=== PATIENT | male | born 1950 | race Caucasian/White ===

== ENCOUNTER 2017-12-13 12:57 | Emergency (ER) | payer MEDICARE, OTHER | END 2017-12-13 17:00 | disposition short-term general hospital (02) | LOC: E/R 12:57 | DX: G62.9 Polyneuropathy, unspecified (principal); I12.9 Hypertensive chronic kidney disease with stage 1 through stage 4 chronic kidney disease, or unspecified chronic kidney disease; N18.9 Chronic kidney disease, unspecified; I25.10 Atherosclerotic heart disease of native coronary artery without angina pectoris; R40.2142 Coma scale, eyes open, spontaneous, at arrival to emergency department; R40.2252 Coma scale, best verbal response, oriented, at arrival to emergency department; R40.2362 Coma scale, best motor response, obeys commands, at arrival to emergency department; Z79.82 Long term (current) use of aspirin; Z87.891 Personal history of nicotine dependence | CPT/HCPCS: 82962; 93005; 99285-25 ==

== ENCOUNTER 2018-01-06 16:34 | Emergency (ER) | payer MEDICARE, OTHER ==
[2018-01-06] MEDS: LORAZEPAM 2 MG INJ IV (16:49)
[2018-01-06 16:59] LABS: ADD MAN DIFF? NO
[2018-01-06 17:01] LABS: WHITE BLOOD COUNT 8.1 10^3/ul (4.8-10.8)
[2018-01-06 17:01] LABS: BASOPHIL # 0.1 10^3/ul (0.0-0.1); BASOPHILS % 0.6 % (0.0-2.0); EOSINOPHILS # 0.1 10^3/ul (0.0-0.5); EOSINOPHILS % 1.1 % (0.0-7.0); HEMATOCRIT 38.2 % (42.0-52.0); HEMOGLOBIN 13.7 g/dl (14.0-18.0); LYMPHOCYTES # 1.4 10^3/ul (0.8-2.9); LYMPHOCYTES % 16.8 % (15.0-51.0); MEAN CORPUSCULAR HEMOGLOBIN 33.3 pg (29.0-33.0); MEAN CORPUSCULAR HGB CONC 35.9 g/dl (32.0-37.0); MEAN CORPUSCULAR VOLUME 92.7 fl (82.0-101.0); MEAN PLATELET VOLUME 10.1 fl (7.4-10.4); MONOCYTE # 0.6 10^3/ul (0.3-0.9); MONOCYTES % 7.1 % (0.0-11.0); NEUTROPHILS % 74.2 % (39.0-77.0); PLATELET COUNT 120 10^3/UL (140-415); RED BLOOD COUNT 4.12 10^6/ul (4.70-6.10); RED CELL DISTRIBUTION WIDTH 12.4 % (11.5-14.5)
[2018-01-06 17:17] LABS: ANION GAP 20 (8-16); BLOOD UREA NITROGEN 32 mg/dl (7-20); CALCIUM 9.1 mg/dl (8.4-10.2); CARBON DIOXIDE 17 mmol/L (21-31); CHLORIDE 110 mmol/L (97-110); CREATININE 2.55 mg/dl (0.61-1.24); GLUCOSE 122 mg/dl (70-220); POTASSIUM 4.9 mmol/L (3.5-5.1); SODIUM 142 mmol/L (135-144)
[2018-01-06 17:31] LABS: TROPONIN-I < 0.010 ng/ml (0.000-0.120)
[2018-01-06] MEDS: LORAZEPAM 1 MG TAB PO (18:38)
[2018-01-06] MEDS: SOD CHLORIDE 0.9% 1,000 ML IV (18:38)
== END 2018-01-06 20:24 | disposition home or self-care (01) ==
LOC: E/R 16:34
DX: I12.9 Hypertensive chronic kidney disease with stage 1 through stage 4 chronic kidney disease, or unspecified chronic kidney disease (principal); I25.10 Atherosclerotic heart disease of native coronary artery without angina pectoris; N18.9 Chronic kidney disease, unspecified; Z87.891 Personal history of nicotine dependence
CPT/HCPCS: 36415; 71045; 80048; 84484; 85025; 93005; 96374; 99285-25

== ENCOUNTER 2018-01-13 12:01 | Emergency (ER) | payer MEDICARE, OTHER ==
[2018-01-13] MEDS: LORAZEPAM 1 MG TAB PO (12:35)
[2018-01-13 16:25] LABS: ADD MAN DIFF? NO
[2018-01-13 16:28] LABS: WHITE BLOOD COUNT 8.7 10^3/ul (4.8-10.8)
[2018-01-13 16:28] LABS: BASOPHIL # 0.1 10^3/ul (0.0-0.1); BASOPHILS % 0.6 % (0.0-2.0); EOSINOPHILS # 0.1 10^3/ul (0.0-0.5); HEMATOCRIT 40.2 % (42.0-52.0); HEMOGLOBIN 14.5 g/dl (14.0-18.0); LYMPHOCYTES # 2.6 10^3/ul (0.8-2.9); LYMPHOCYTES % 29.7 % (15.0-51.0); MEAN CORPUSCULAR HEMOGLOBIN 32.5 pg (29.0-33.0); MEAN CORPUSCULAR HGB CONC 36.1 g/dl (32.0-37.0); MEAN CORPUSCULAR VOLUME 90.1 fl (82.0-101.0); MEAN PLATELET VOLUME 10.2 fl (7.4-10.4); MONOCYTE # 0.6 10^3/ul (0.3-0.9); MONOCYTES % 6.6 % (0.0-11.0); NEUTROPHIL # 5.4 10^3/ul (1.6-7.5); NEUTROPHILS % 61.9 % (39.0-77.0); PLATELET COUNT 118 10^3/UL (140-415); POSITIVE DIFF @See below; RED BLOOD COUNT 4.46 10^6/ul (4.70-6.10); RED CELL DISTRIBUTION WIDTH 12.5 % (11.5-14.5)
[2018-01-13 16:53] LABS: ALANINE AMINOTRANSFERASE 16 IU/L (13-69); ALBUMIN 4.6 g/dl (3.3-4.9); ALBUMIN/GLOBULIN RATIO 1.21; ALKALINE PHOSPHATASE 56 IU/L (42-121); ANION GAP 17 (8-16); ASPARTATE AMINO TRANSFERASE 30 IU/L (15-46); BILIRUBIN,INDIRECT 1.3 mg/dl (0-1.1); BILIRUBIN,TOTAL 1.3 mg/dl (0.2-1.3); BLOOD UREA NITROGEN 32 mg/dl (7-20); CALCIUM 9.6 mg/dl (8.4-10.2); CARBON DIOXIDE 17 mmol/L (21-31); CHLORIDE 112 mmol/L (97-110); CREATININE 2.45 mg/dl (0.61-1.24); GLUCOSE 110 mg/dl (70-220); POTASSIUM 4.6 mmol/L (3.5-5.1); SALICYLATE 2.4 mg/dl (5.0-30.0); SODIUM 141 mmol/L (135-144); TOTAL PROTEIN 8.4 g/dl (6.1-8.1)
[2018-01-13 16:54] LABS: ACETAMINOPHEN < 10.0 ug/ml (10.0-30.0); ETHANOL < 10.0 mg/dl
[2018-01-14] MEDS: IBUPROFEN 600 MG TAB PO (01:19)
[2018-01-14 02:03] LABS: AMPHETAMINE/METHAMPHETAMINE Negative (NEGATIVE); BARBITURATES Negative (NEGATIVE); BENZODIAZEPINES Positive (NEGATIVE); CANNABINOIDS Negative (NEGATIVE); COCAINE Negative (NEGATIVE); OPIATES Negative (NEGATIVE)
[2018-01-14 03:04] LABS: ADD UMIC YES; UR ASCORBIC ACID NEGATIVE (NEGATIVE); UR BACTERIA FEW /HPF (NONE SEEN); UR BILIRUBIN (Dip) NEGATIVE (NEGATIVE); UR BLOOD (Dip) 1+ mg/dL (NEGATIVE); UR CLARITY CLOUDY (CLEAR); UR COLOR RED (YELLOW); UR GLUCOSE (Dip) NEGATIVE (NEGATIVE); UR KETONES (Dip) NEGATIVE (NEGATIVE); UR LEUKOCYTE ESTERASE (Dip) 3+ Leu/ul (NEGATIVE); UR MUCUS FEW /HPF (NONE SEEN); UR NITRITE (Dip) NEGATIVE (NEGATIVE); UR RBC 1 /HPF (0-5); UR SPECIFIC GRAVITY (Dip) 1.012 (1.003-1.030); UR TOTAL PROTEIN (Dip) 2+ mg/dl (NEGATIVE); UR UROBILINOGEN (Dip) NEGATIVE (NEGATIVE); UR WBC 152 /HPF (0-5)
[2018-01-14] MEDS: CEFTRIAXONE 1 GM/50 ML (PMX) 50 ML IVPB (04:13)
[2018-01-14] MEDS: CEFTRIAXONE 1 GM INJ IM (04:45)
== END 2018-01-14 07:00 ==
LOC: E/R 01-14 07:00
DX: E86.0 Dehydration (principal); I12.9 Hypertensive chronic kidney disease with stage 1 through stage 4 chronic kidney disease, or unspecified chronic kidney disease; N18.9 Chronic kidney disease, unspecified; I25.10 Atherosclerotic heart disease of native coronary artery without angina pectoris; I25.2 Old myocardial infarction; F17.210 Nicotine dependence, cigarettes, uncomplicated
CPT/HCPCS: 80053; 80307; 81001; 85025; 96372; 99285-25

== ENCOUNTER 2018-04-13 19:03 | Emergency (ER) | payer MEDICARE, OTHER ==
[2018-04-13] MEDS: RACEPINEPHRINE 2.25%(NEB) 0.5 ML AMP HHN (19:24)
[2018-04-13] MEDS: ONDANSETRON 4 MG INJ IV (19:37)
[2018-04-13] MEDS: GLUCAGON 1 MG INJ IV (19:37)
[2018-04-13] MEDS: LORAZEPAM 1 MG TAB PO (19:49)
[2018-04-13] MEDS: LEVOFLOXACIN 750 MG TABLET PO (20:08)
[2018-04-13] MEDS: metroNIDAZOLE 500 MG TAB PO (20:08)
[2018-04-13] MEDS: DEXAMETHASONE 10 MG/ML 1 ML INJ IM (20:08)
== END 2018-04-13 20:21 | disposition left against medical advice (07) ==
LOC: E/R 19:03
DX: T17.900A Unspecified foreign body in respiratory tract, part unspecified causing asphyxiation, initial encounter (principal); I12.9 Hypertensive chronic kidney disease with stage 1 through stage 4 chronic kidney disease, or unspecified chronic kidney disease; N18.9 Chronic kidney disease, unspecified; I25.10 Atherosclerotic heart disease of native coronary artery without angina pectoris; I25.2 Old myocardial infarction; F17.210 Nicotine dependence, cigarettes, uncomplicated; R06.02 Shortness of breath; X58.XXXA Exposure to other specified factors, initial encounter; Y92.89 Other specified places as the place of occurrence of the external cause
CPT/HCPCS: 94664; 96372; 99285-25

== ENCOUNTER 2018-09-06 21:34 | Inpatient (IN) | payer MEDICARE, OTHER ==
[2018-09-06 22:07] LABS: ADD MAN DIFF? NO
[2018-09-06] MEDS: morphine 4 MG/ML VIAL IV (22:19)
[2018-09-06] MEDS: ONDANSETRON 4 MG INJ IV (22:19)
[2018-09-06] MEDS: SOD CHLORIDE 0.9% 500 ML IV (22:20)
[2018-09-06 23:16] LABS: ABNORMAL IP MESSAGE 1; BASOPHILS % 0.5 % (0.0-2.0); EOSINOPHILS # 0.1 10^3/ul (0.0-0.5); EOSINOPHILS % 3.2 % (0.0-7.0); HEMOGLOBIN 11.3 g/dl (14.0-18.0); LYMPHOCYTES # 1.1 10^3/ul (0.8-2.9); LYMPHOCYTES % 29.3 % (15.0-51.0); MEAN CORPUSCULAR HEMOGLOBIN 32.8 pg (29.0-33.0); MEAN CORPUSCULAR HGB CONC 34.2 g/dl (32.0-37.0); MEAN CORPUSCULAR VOLUME 95.7 fl (82.0-101.0); MEAN PLATELET VOLUME 9.3 fl (7.4-10.4); MONOCYTE # 0.4 10^3/ul (0.3-0.9); MONOCYTES % 9.2 % (0.0-11.0); NEUTROPHIL # 2.2 10^3/ul (1.6-7.5); NEUTROPHILS % 57.3 % (39.0-77.0); PLATELET COUNT 61 10^3/UL (140-415); POSITIVE DIFF @See below; RED BLOOD COUNT 3.45 10^6/ul (4.70-6.10); RED CELL DISTRIBUTION WIDTH 12.8 % (11.5-14.5)
[2018-09-06 23:16] LABS: WHITE BLOOD COUNT 3.8 10^3/ul (4.8-10.8)
[2018-09-06 23:36] LABS: ANION GAP 6 (5-13); BLOOD UREA NITROGEN 30 mg/dl (7-20); CARBON DIOXIDE 24 mmol/L (21-31); CHLORIDE 110 mmol/L (97-110); CREATININE 2.71 mg/dl (0.61-1.24); Estimated GFR 24 mL/min (>60); GLUCOSE 92 mg/dl (70-220); POTASSIUM 4.5 mmol/L (3.5-5.1); SODIUM 140 mmol/L (135-144)
[2018-09-06 23:37] LABS: MAGNESIUM 1.5 mg/dl (1.7-2.5)
[2018-09-06 23:37] LABS: INR 1.07; PT RATIO 1.1
[2018-09-06 23:38] LABS: PARTIAL THROMBOPLASTIN TIME 38.3 Sec (23.0-35.0)
[2018-09-06 23:48] LABS: TROPONIN-I < 0.012 ng/ml (0.000-0.120)
[2018-09-07] MEDS ORDERED: ONDANSETRON 4 MG TAB PO
[2018-09-07] MEDS ORDERED: ACETAMINOPHEN 325 MG TAB PO
[2018-09-07] MEDS ORDERED: NACL 0.9% 3 ML SYG IV
[2018-09-07] MEDS ORDERED: ONDANSETRON 4 MG INJ IV
[2018-09-07] MEDS: HYDROmorphONE 0.5 MG/0.5 ML SYG IV
[2018-09-07] MEDS: MAGNESIUM SULFATE 2 GM/50 ML 50 ML IVPB
[2018-09-07 01:33] LABS: BASOPHILS % (M) 1 % (0-2); EOSINOPHILS % (M) 3 % (0-7); LYMPHOCYTES #M 0.9 10^3/ul (0.8-2.9); LYMPHOCYTES % (M) 25 % (15-51); MONOCYTE #M 0.2 10^3/ul (0.3-0.9); MONOCYTES % (M) 7 % (0-11); PLATELET ESTIMATE DECREASED; SEGMENTED NEUTROPHILS (M) % 64 % (39-77)
[2018-09-07 01:43] LABS: CREATINE KINASE 203 IU/L (23-200)
[2018-09-07 01:45] LABS: ETHANOL < 10.0 mg/dl (0-0)
[2018-09-07 01:56] LABS: CK INDEX 1.8; TROPONIN-I < 0.012 ng/ml (0.000-0.120)
[2018-09-07 02:02] LABS: CK-MB 3.69 ng/ml (0.0-2.4)
[2018-09-07] MEDS: ACETAMINOPHEN 325 MG TAB PO ×2 (02:53→17:28)
[2018-09-07] MEDS: HEPARIN 5,000 UNIT/1 ML VIAL SC (03:06)
[2018-09-07] MEDS: traMADol 50 MG TAB PO ×2 (04:12→13:03)
[2018-09-07] MEDS: hydrALAzine 20 MG INJ IV (05:07)
[2018-09-07] MEDS: morphine 2 MG INJ IV (06:05)
[2018-09-07] MEDS ORDERED: NON-FORMULARY/PATIENT OWN MED (Omeprazole* 20 MG) PO (09:00)
[2018-09-07 09:28] LABS: ADD UMIC YES; UR ASCORBIC ACID NEGATIVE (NEGATIVE); UR BILIRUBIN (Dip) NEGATIVE (NEGATIVE); UR BLOOD (Dip) NEGATIVE (NEGATIVE); UR CLARITY CLEAR (CLEAR); UR COLOR STRAW (YELLOW); UR GLUCOSE (Dip) NEGATIVE (NEGATIVE); UR KETONES (Dip) NEGATIVE (NEGATIVE); UR LEUKOCYTE ESTERASE (Dip) NEGATIVE Leu/ul (NEGATIVE); UR NITRITE (Dip) NEGATIVE (NEGATIVE); UR RBC 1 /HPF (0-5); UR SPECIFIC GRAVITY (Dip) 1.006 (1.003-1.030); UR TOTAL PROTEIN (Dip) 2+ mg/dl (NEGATIVE); UR UROBILINOGEN (Dip) NEGATIVE (NEGATIVE); UR WBC 0 /HPF (0-5)
[2018-09-07] MEDS: CHOLECALCIFEROL 1,000 UNIT TAB PO (09:52)
[2018-09-07] MEDS: AMLODIPINE 2.5 MG TAB PO (09:53)
[2018-09-07] MEDS: GABAPENTIN 300 MG CAP PO (09:54)
[2018-09-07] MEDS: clonAZEPAM 0.5 MG TAB PO ×4 (09:54→20:59)
[2018-09-07] MEDS: DOXYCYCLINE 100 MG TAB PO ×2 (09:54→20:59)
[2018-09-07] MEDS: DULOXETINE 30 MG CAP DR PO (09:54)
[2018-09-07 10:03] LABS: SODIUM,URINE RANDOM 75 mmol/L (30-90)
[2018-09-07] MEDS: IPRATROPIUM 0.03% 30 ML NASAL SPRAY NASAL ×2 (10:30→21:00)
[2018-09-07 10:32] LABS: AMPHETAMINE/METHAMPHETAMINE Negative (NEGATIVE); BARBITURATES Negative (NEGATIVE); BENZODIAZEPINES Negative (NEGATIVE); CANNABINOIDS Negative (NEGATIVE); COCAINE Negative (NEGATIVE); OPIATES Positive (NEGATIVE)
[2018-09-07] MEDS: morphine (ER) 30 MG TAB PO ×2 (11:06→20:58)
[2018-09-07] MEDS: ROPINIROLE 0.25 MG TAB PO ×3 (11:13→20:59)
[2018-09-07] MEDS: PANTOPRAZOLE (EC) 40 MG TAB PO (11:13)
[2018-09-07] MEDS: RISPERIDONE 2 MG TAB PO ×2 (11:13→20:58)
[2018-09-07 12:00] LABS: ADD MAN DIFF? NO
[2018-09-07 12:11] LABS: ABNORMAL IP MESSAGE 1; BASOPHILS % 0.8 % (0.0-2.0); EOSINOPHILS # 0.1 10^3/ul (0.0-0.5); HEMATOCRIT 40.7 % (42.0-52.0); HEMOGLOBIN 13.7 g/dl (14.0-18.0); LYMPHOCYTES # 0.7 10^3/ul (0.8-2.9); LYMPHOCYTES % 18.6 % (15.0-51.0); MEAN CORPUSCULAR HEMOGLOBIN 32.2 pg (29.0-33.0); MEAN CORPUSCULAR HGB CONC 33.7 g/dl (32.0-37.0); MEAN CORPUSCULAR VOLUME 95.8 fl (82.0-101.0); MEAN PLATELET VOLUME 9.9 fl (7.4-10.4); MONOCYTE # 0.3 10^3/ul (0.3-0.9); MONOCYTES % 7.3 % (0.0-11.0); NEUTROPHIL # 2.8 10^3/ul (1.6-7.5); PLATELET COUNT 72 10^3/UL (140-415); POSITIVE DIFF @See below; RED BLOOD COUNT 4.25 10^6/ul (4.70-6.10); RED CELL DISTRIBUTION WIDTH 12.8 % (11.5-14.5)
[2018-09-07 12:32] LABS: CREATINE KINASE 150 IU/L (23-200)
[2018-09-07 12:37] LABS: HEMOGLOBIN A1C 4.9 % (0-5.9)
[2018-09-07 12:41] LABS: ALANINE AMINOTRANSFERASE 21 IU/L (13-69); ALBUMIN/GLOBULIN RATIO 1.08; ALKALINE PHOSPHATASE 88 IU/L (42-121); ANION GAP 10 (5-13); ASPARTATE AMINO TRANSFERASE 36 IU/L (15-46); BILIRUBIN,INDIRECT 0.5 mg/dl (0-1.1); BILIRUBIN,TOTAL 0.5 mg/dl (0.2-1.3); CALCIUM 9.5 mg/dl (8.4-10.2); CARBON DIOXIDE 24 mmol/L (21-31); CHLORIDE 110 mmol/L (97-110); CHOL/HDL RATIO 2.9 RATIO; CHOLESTEROL 143 mg/dl (100-200); CREATININE 2.57 mg/dl (0.61-1.24); Estimated GFR 25 mL/min (>60); GLUCOSE 107 mg/dl (70-220); HDL CHOLESTEROL 49 mg/dl (30-78); LDL CHOLESTEROL,CALCULATED 72 mg/dl; MAGNESIUM 2.3 mg/dl (1.7-2.5); SODIUM 144 mmol/L (135-144); TOTAL PROTEIN 7.7 g/dl (6.1-8.1); TRIGLYCERIDES 112 mg/dl (0-149)
[2018-09-07 12:43] LABS: BLOOD UREA NITROGEN 28 mg/dl (7-20); CK INDEX 2.1; TROPONIN-I < 0.012 ng/ml (0.000-0.120)
[2018-09-07 12:50] LABS: CK-MB 3.19 ng/ml (0.0-2.4)
[2018-09-07] MEDS ORDERED: clonAZEPAM 0.5 MG TAB PO (13:00)
[2018-09-07] MEDS: GABAPENTIN 400 MG CAP PO ×2 (13:03→20:58)
[2018-09-07 14:05] LABS: CREATININE,URINE RANDOM 26.95 mg/dl (20-370)
[2018-09-07] MEDS: SENNA/DOCUSATE NA (8.6MG/50MG) TAB PO (20:58)
[2018-09-07] MEDS: TAMSULOSIN (SR) 0.4 MG CAP PO (20:59)
[2018-09-07] MEDS: ATORVASTATIN 10 MG TAB PO (20:59)
[2018-09-08 06:06] LABS: ADD MAN DIFF? NO
[2018-09-08] MEDS: PANTOPRAZOLE (EC) 40 MG TAB PO (06:21)
[2018-09-08 06:38] LABS: ABNORMAL IP MESSAGE 1; BASOPHILS % 0.4 % (0.0-2.0); EOSINOPHILS # 0.1 10^3/ul (0.0-0.5); EOSINOPHILS % 2.7 % (0.0-7.0); HEMATOCRIT 36.1 % (42.0-52.0); LYMPHOCYTES # 1.4 10^3/ul (0.8-2.9); LYMPHOCYTES % 28.9 % (15.0-51.0); MEAN CORPUSCULAR HEMOGLOBIN 32.2 pg (29.0-33.0); MEAN CORPUSCULAR HGB CONC 33.2 g/dl (32.0-37.0); MEAN CORPUSCULAR VOLUME 96.8 fl (82.0-101.0); MEAN PLATELET VOLUME 10.2 fl (7.4-10.4); MONOCYTE # 0.5 10^3/ul (0.3-0.9); MONOCYTES % 10.3 % (0.0-11.0); NEUTROPHIL # 2.8 10^3/ul (1.6-7.5); NEUTROPHILS % 57.5 % (39.0-77.0); PLATELET COUNT 71 10^3/UL (140-415); POSITIVE DIFF @See below; RED BLOOD COUNT 3.73 10^6/ul (4.70-6.10); RED CELL DISTRIBUTION WIDTH 12.8 % (11.5-14.5)
[2018-09-08 06:38] LABS: WHITE BLOOD COUNT 4.9 10^3/ul (4.8-10.8)
[2018-09-08 06:44] LABS: ALANINE AMINOTRANSFERASE 23 IU/L (13-69); ALBUMIN 3.1 g/dl (3.3-4.9); ALBUMIN/GLOBULIN RATIO 0.96; ALKALINE PHOSPHATASE 65 IU/L (42-121); ANION GAP 7 (5-13); ASPARTATE AMINO TRANSFERASE 25 IU/L (15-46); BILIRUBIN,INDIRECT 0.8 mg/dl (0-1.1); BILIRUBIN,TOTAL 0.8 mg/dl (0.2-1.3); BLOOD UREA NITROGEN 29 mg/dl (7-20); CALCIUM 8.6 mg/dl (8.4-10.2); CARBON DIOXIDE 25 mmol/L (21-31); CHLORIDE 107 mmol/L (97-110); CREATININE 2.66 mg/dl (0.61-1.24); Estimated GFR 24 mL/min (>60); GLUCOSE 108 mg/dl (70-220); POTASSIUM 4.8 mmol/L (3.5-5.1); SODIUM 139 mmol/L (135-144); TOTAL PROTEIN 6.3 g/dl (6.1-8.1)
[2018-09-08] MEDS: RISPERIDONE 2 MG TAB PO ×3 (09:00→20:14)
[2018-09-08] MEDS: ROPINIROLE 0.25 MG TAB PO ×4 (09:00→20:14)
[2018-09-08] MEDS: IPRATROPIUM 0.03% 30 ML NASAL SPRAY NASAL (09:00)
[2018-09-08] MEDS: SENNA/DOCUSATE NA (8.6MG/50MG) TAB PO ×2 (09:04→20:13)
[2018-09-08] MEDS: GABAPENTIN 400 MG CAP PO ×3 (09:04→20:13)
[2018-09-08] MEDS: MAGNESIUM OXIDE 400 MG TAB PO (09:04)
[2018-09-08] MEDS: CHOLECALCIFEROL 1,000 UNIT TAB PO (09:04)
[2018-09-08] MEDS: DOXYCYCLINE 100 MG TAB PO ×2 (09:04→20:13)
[2018-09-08] MEDS: clonAZEPAM 0.5 MG TAB PO ×3 (09:05→20:16)
[2018-09-08] MEDS: DULOXETINE 30 MG CAP DR PO (09:05)
[2018-09-08] MEDS: AMLODIPINE 2.5 MG TAB PO (09:05)
[2018-09-08] MEDS: morphine (ER) 30 MG TAB PO ×2 (09:05→20:13)
[2018-09-08] MEDS: traMADol 50 MG TAB PO (09:14)
[2018-09-08] MEDS: SOD CHLORIDE 0.9% 1,000 ML IV (12:26)
[2018-09-08] MEDS: TOPIRAMATE 25 MG TAB PO ×2 (12:26→20:14)
[2018-09-08] MEDS: morphine 2 MG INJ IV (12:29)
[2018-09-08] MEDS: GUAIFENESIN LA 600 MG TABSR PO ×2 (13:53→20:14)
[2018-09-08] MEDS: TAMSULOSIN (SR) 0.4 MG CAP PO (20:13)
[2018-09-08] MEDS: ATORVASTATIN 10 MG TAB PO (20:14)
[2018-09-09] MEDS: SOD CHLORIDE 0.9% 1,000 ML IV ×2 (01:55→21:04)
[2018-09-09 05:19] LABS: ADD MAN DIFF? NO
[2018-09-09 05:22] LABS: WHITE BLOOD COUNT 5.2 10^3/ul (4.8-10.8)
[2018-09-09 05:22] LABS: ABNORMAL IP MESSAGE 1; BASOPHILS % 0.6 % (0.0-2.0); EOSINOPHILS # 0.2 10^3/ul (0.0-0.5); EOSINOPHILS % 2.9 % (0.0-7.0); HEMATOCRIT 36.1 % (42.0-52.0); HEMOGLOBIN 12.3 g/dl (14.0-18.0); LYMPHOCYTES # 1.4 10^3/ul (0.8-2.9); LYMPHOCYTES % 27.5 % (15.0-51.0); MEAN CORPUSCULAR HEMOGLOBIN 32.7 pg (29.0-33.0); MEAN CORPUSCULAR HGB CONC 34.1 g/dl (32.0-37.0); MEAN PLATELET VOLUME 9.7 fl (7.4-10.4); MONOCYTE # 0.5 10^3/ul (0.3-0.9); MONOCYTES % 10.1 % (0.0-11.0); NEUTROPHIL # 3.1 10^3/ul (1.6-7.5); NEUTROPHILS % 58.5 % (39.0-77.0); PLATELET COUNT 73 10^3/UL (140-415); POSITIVE DIFF @See below; RED BLOOD COUNT 3.76 10^6/ul (4.70-6.10); RED CELL DISTRIBUTION WIDTH 12.5 % (11.5-14.5)
[2018-09-09 05:40] LABS: ALANINE AMINOTRANSFERASE 16 IU/L (13-69); ALBUMIN 3.2 g/dl (3.3-4.9); ALBUMIN/GLOBULIN RATIO 1.06; ALKALINE PHOSPHATASE 68 IU/L (42-121); ANION GAP 9 (5-13); ASPARTATE AMINO TRANSFERASE 23 IU/L (15-46); BILIRUBIN,INDIRECT 0.9 mg/dl (0-1.1); BILIRUBIN,TOTAL 0.9 mg/dl (0.2-1.3); BLOOD UREA NITROGEN 33 mg/dl (7-20); CALCIUM 8.2 mg/dl (8.4-10.2); CARBON DIOXIDE 25 mmol/L (21-31); CHLORIDE 104 mmol/L (97-110); CREATININE 3.02 mg/dl (0.61-1.24); Estimated GFR 21 mL/min (>60); GLUCOSE 116 mg/dl (70-220); POTASSIUM 4.6 mmol/L (3.5-5.1); SODIUM 138 mmol/L (135-144); TOTAL PROTEIN 6.2 g/dl (6.1-8.1)
[2018-09-09] MEDS: PANTOPRAZOLE (EC) 40 MG TAB PO (05:58)
[2018-09-09] MEDS: DULOXETINE 30 MG CAP DR PO (08:41)
[2018-09-09] MEDS: GABAPENTIN 400 MG CAP PO ×3 (08:41→20:18)
[2018-09-09] MEDS: MAGNESIUM OXIDE 400 MG TAB PO ×2 (08:41→20:18)
[2018-09-09] MEDS: ROPINIROLE 0.25 MG TAB PO ×3 (08:41→20:18)
[2018-09-09] MEDS: RISPERIDONE 2 MG TAB PO ×2 (08:41→20:18)
[2018-09-09] MEDS: CHOLECALCIFEROL 1,000 UNIT TAB PO (08:41)
[2018-09-09] MEDS: SENNA/DOCUSATE NA (8.6MG/50MG) TAB PO ×2 (08:41→21:04)
[2018-09-09] MEDS: TOPIRAMATE 25 MG TAB PO ×2 (08:41→20:18)
[2018-09-09] MEDS: GUAIFENESIN LA 600 MG TABSR PO ×2 (08:41→20:18)
[2018-09-09] MEDS: DOXYCYCLINE 100 MG TAB PO ×2 (08:42→20:18)
[2018-09-09] MEDS: ACETAMINOPHEN 325 MG TAB PO (08:42)
[2018-09-09] MEDS: AMLODIPINE 2.5 MG TAB PO (08:42)
[2018-09-09] MEDS: morphine (ER) 30 MG TAB PO ×3 (08:42→21:00)
[2018-09-09] MEDS: clonAZEPAM 0.5 MG TAB PO ×3 (08:42→20:18)
[2018-09-09] MEDS: TAMSULOSIN (SR) 0.4 MG CAP PO (20:18)
[2018-09-09] MEDS: ATORVASTATIN 10 MG TAB PO (20:18)
[2018-09-10] MEDS: DULOXETINE 30 MG CAP DR PO (09:21)
[2018-09-10] MEDS: clonAZEPAM 0.5 MG TAB PO ×3 (09:21→21:00)
[2018-09-10] MEDS: MAGNESIUM OXIDE 400 MG TAB PO ×2 (09:22→21:00)
[2018-09-10] MEDS: DOXYCYCLINE 100 MG TAB PO ×2 (09:22→21:00)
[2018-09-10] MEDS: GABAPENTIN 400 MG CAP PO ×3 (09:22→21:00)
[2018-09-10] MEDS: morphine (ER) 30 MG TAB PO ×2 (09:22→21:00)
[2018-09-10] MEDS: ROPINIROLE 0.25 MG TAB PO ×3 (09:22→21:00)
[2018-09-10] MEDS: CHOLECALCIFEROL 1,000 UNIT TAB PO (09:22)
[2018-09-10] MEDS: TOPIRAMATE 25 MG TAB PO ×2 (09:23→21:00)
[2018-09-10] MEDS: AMLODIPINE 2.5 MG TAB PO (09:23)
[2018-09-10] MEDS: SENNA/DOCUSATE NA (8.6MG/50MG) TAB PO ×2 (09:23→21:00)
[2018-09-10] MEDS: GUAIFENESIN LA 600 MG TABSR PO ×2 (09:23→21:00)
[2018-09-10] MEDS: RISPERIDONE 2 MG TAB PO ×2 (09:23→21:00)
[2018-09-10 10:51] LABS: ADD MAN DIFF? NO
[2018-09-10 10:54] LABS: WHITE BLOOD COUNT 5.8 10^3/ul (4.8-10.8)
[2018-09-10 10:54] LABS: ABNORMAL IP MESSAGE 1; BASOPHILS % 0.5 % (0.0-2.0); EOSINOPHILS # 0.2 10^3/ul (0.0-0.5); EOSINOPHILS % 2.9 % (0.0-7.0); HEMATOCRIT 34.2 % (42.0-52.0); HEMOGLOBIN 11.5 g/dl (14.0-18.0); LYMPHOCYTES % 16.8 % (15.0-51.0); MEAN CORPUSCULAR HEMOGLOBIN 32.3 pg (29.0-33.0); MEAN CORPUSCULAR HGB CONC 33.6 g/dl (32.0-37.0); MEAN CORPUSCULAR VOLUME 96.1 fl (82.0-101.0); MEAN PLATELET VOLUME 9.7 fl (7.4-10.4); MONOCYTE # 0.6 10^3/ul (0.3-0.9); NEUTROPHILS % 69.5 % (39.0-77.0); PLATELET COUNT 74 10^3/UL (140-415); POSITIVE DIFF @See below; RED BLOOD COUNT 3.56 10^6/ul (4.70-6.10); RED CELL DISTRIBUTION WIDTH 12.2 % (11.5-14.5)
[2018-09-10 11:28] LABS: ALANINE AMINOTRANSFERASE 21 IU/L (13-69); ALBUMIN 3.1 g/dl (3.3-4.9); ALBUMIN/GLOBULIN RATIO 0.93; ALKALINE PHOSPHATASE 64 IU/L (42-121); ANION GAP 8 (5-13); ASPARTATE AMINO TRANSFERASE 21 IU/L (15-46); BILIRUBIN,INDIRECT 0.6 mg/dl (0-1.1); BILIRUBIN,TOTAL 0.6 mg/dl (0.2-1.3); BLOOD UREA NITROGEN 34 mg/dl (7-20); CALCIUM 8.5 mg/dl (8.4-10.2); CARBON DIOXIDE 25 mmol/L (21-31); CHLORIDE 107 mmol/L (97-110); CREATININE 2.98 mg/dl (0.61-1.24); Estimated GFR 21 mL/min (>60); GLUCOSE 159 mg/dl (70-220); POTASSIUM 4.4 mmol/L (3.5-5.1); SODIUM 140 mmol/L (135-144); TOTAL PROTEIN 6.4 g/dl (6.1-8.1)
[2018-09-10 11:41] LABS: PHOSPHORUS 4.2 mg/dl (2.5-4.9)
[2018-09-10] MEDS: ATORVASTATIN 10 MG TAB PO (21:00)
[2018-09-10] MEDS: TAMSULOSIN (SR) 0.4 MG CAP PO (21:00)
[2018-09-10] MEDS: IPRATROPIUM (NEB) 0.5 MG/2.5 ML AMP HHN (21:41)
[2018-09-10] MEDS: ACETYLCYSTEINE 20% 4 ML VIAL NEB (21:41)
[2018-09-10] MEDS: LEVALBUTEROL (NEB) 1.25 MG/0.5 ML AMP HHN (21:41)
[2018-09-10 23:26] LABS: AADO2 Arterial 596.7 mmHg (7.0-24.0); Allen Test ACCEPTAB; Arterial Base Excess -2.2 mmol/L (-3.0-3); Arterial Fraction of Oxyhgb 91.7 % (93.0-99.0); Arterial MetHb 0.4 % (0.0-1.5); Arterial pCO2 46.6 mmhg (35-45); MODE MASK - NRB; Site Right Radial
[2018-09-10] MEDS ORDERED: ACETYLCYSTEINE 20% 4 ML VIAL NEB (23:30)
[2018-09-11] MEDS: CEFEPIME 1GM/50 ML (PMX) 50 ML IVPB ×3 (00:27→21:30)
[2018-09-11] MEDS ORDERED: VANCOMYCIN IV PER PHARMACY XX (01:00)
[2018-09-11] MEDS: ACETAMINOPHEN 1000MG/100ML IV 100 ML IVPB (01:42)
[2018-09-11] MEDS: HALOPERIDOL 5 MG INJ IM (02:54)
[2018-09-11] MEDS: DIPHENHYDRAMINE 50 MG INJ IV (04:00)
[2018-09-11] MEDS: LORAZEPAM 2 MG INJ IV (04:08)
[2018-09-11] MEDS: clonAZEPAM 0.5 MG TAB PO ×4 (04:08→22:08)
[2018-09-11] MEDS: SOD CHLORIDE 0.9% 250 ML IV (04:55)
[2018-09-11] MEDS: VANCOMYCIN HCL 1.75 GM in SOD CHLORIDE 0.9% 500 ML IVPB (05:14)
[2018-09-11 07:29] LABS: ABNORMAL IP MESSAGE 1; HEMATOCRIT 33.5 % (42.0-52.0); HEMOGLOBIN 11.1 g/dl (14.0-18.0); MEAN CORPUSCULAR HEMOGLOBIN 31.8 pg (29.0-33.0); MEAN CORPUSCULAR HGB CONC 33.1 g/dl (32.0-37.0); MEAN PLATELET VOLUME 9.8 fl (7.4-10.4); PLATELET COUNT 80 10^3/UL (140-415); POSITIVE DIFF @See below; RED BLOOD COUNT 3.49 10^6/ul (4.70-6.10); RED CELL DISTRIBUTION WIDTH 12.6 % (11.5-14.5)
[2018-09-11 07:29] LABS: WHITE BLOOD COUNT 4.9 10^3/ul (4.8-10.8)
[2018-09-11 07:31] LABS: ADD MAN DIFF? YES
[2018-09-11 08:00] LABS: ANION GAP 7 (5-13); BLOOD UREA NITROGEN 38 mg/dl (7-20); CALCIUM 8.4 mg/dl (8.4-10.2); CARBON DIOXIDE 25 mmol/L (21-31); CHLORIDE 110 mmol/L (97-110); CREATININE 3.03 mg/dl (0.61-1.24); Estimated GFR 21 mL/min (>60); GLUCOSE 135 mg/dl (70-220); PHOSPHORUS 4.1 mg/dl (2.5-4.9); POTASSIUM 4.7 mmol/L (3.5-5.1); SODIUM 142 mmol/L (135-144)
[2018-09-11 08:16] LABS: MAGNESIUM 2.1 mg/dl (1.7-2.5)
[2018-09-11] MEDS: ROPINIROLE 0.25 MG TAB PO ×3 (09:00→22:09)
[2018-09-11 09:24] LABS: ANISOCYTOSIS 1+ (0-0); BAND NEUTROPHILS % (M) 22 % (0-4); BASOPHILS % (M) 1 % (0-2); GIANT THROMBO% (M) 3 % (0-0); LYMPHOCYTES #M 0.5 10^3/ul (0.8-2.9); LYMPHOCYTES % (M) 11 % (15-51); METAMYELOCYTES %M 1 % (0-0); MONOCYTE #M 0.5 10^3/ul (0.3-0.9); MONOCYTES % (M) 12 % (0-11); MYELOCYTES % (M) 2 % (0-0); PLATELET ESTIMATE DECREASED; SEG NEUT #M 2.5 10^3/ul (1.6-7.5); SEGMENTED NEUTROPHILS (M) % 51 % (39-77); SMUDGE%M 5 % (0-0)
[2018-09-11] MEDS: MAGNESIUM OXIDE 400 MG TAB PO ×2 (09:34→22:09)
[2018-09-11] MEDS: SENNA/DOCUSATE NA (8.6MG/50MG) TAB PO ×2 (09:35→21:00)
[2018-09-11] MEDS: morphine (ER) 30 MG TAB PO ×2 (09:35→22:09)
[2018-09-11] MEDS: DOXYCYCLINE 100 MG TAB PO ×2 (09:36→22:08)
[2018-09-11] MEDS: DULOXETINE 30 MG CAP DR PO (09:36)
[2018-09-11] MEDS: CHOLECALCIFEROL 1,000 UNIT TAB PO (09:36)
[2018-09-11] MEDS: AMLODIPINE 2.5 MG TAB PO (09:36)
[2018-09-11] MEDS: GUAIFENESIN LA 600 MG TABSR PO ×2 (09:36→22:08)
[2018-09-11] MEDS: GABAPENTIN 400 MG CAP PO ×3 (09:42→21:00)
[2018-09-11] MEDS: RISPERIDONE 2 MG TAB PO ×2 (13:25→22:09)
[2018-09-11] MEDS: TOPIRAMATE 25 MG TAB PO ×2 (13:25→22:10)
[2018-09-11] MEDS: morphine 2 MG INJ IV (13:26)
[2018-09-11] MEDS: SOD CHLORIDE 0.9% 500 ML IV ×2 (15:33→22:13)
[2018-09-11] MEDS: LEVALBUTEROL (NEB) 0.63 MG/3 ML AMP HHN ×2 (17:10→23:17)
[2018-09-11] MEDS: ACETYLCYSTEINE 20% 4 ML VIAL NEB ×2 (17:11→23:17)
[2018-09-11] MEDS: TAMSULOSIN (SR) 0.4 MG CAP PO (22:08)
[2018-09-11] MEDS: ATORVASTATIN 10 MG TAB PO (22:09)
[2018-09-12] MEDS ORDERED: VANCOMYCIN 750 MG (PMX) 250 ML IVPB (03:00)
[2018-09-12] MEDS: morphine 2 MG INJ IV ×2 (03:20→06:39)
[2018-09-12 06:41] LABS: ADD MAN DIFF? NO
[2018-09-12 06:47] LABS: ABNORMAL IP MESSAGE 1; BASOPHILS % 0.3 % (0.0-2.0); EOSINOPHILS # 0.3 10^3/ul (0.0-0.5); EOSINOPHILS % 8.2 % (0.0-7.0); HEMATOCRIT 30.9 % (42.0-52.0); LYMPHOCYTES # 0.9 10^3/ul (0.8-2.9); LYMPHOCYTES % 28.2 % (15.0-51.0); MEAN CORPUSCULAR HEMOGLOBIN 31.6 pg (29.0-33.0); MEAN CORPUSCULAR HGB CONC 32.4 g/dl (32.0-37.0); MEAN CORPUSCULAR VOLUME 97.8 fl (82.0-101.0); MEAN PLATELET VOLUME 10.3 fl (7.4-10.4); MONOCYTE # 0.5 10^3/ul (0.3-0.9); MONOCYTES % 14.2 % (0.0-11.0); NEUTROPHIL # 1.6 10^3/ul (1.6-7.5); NEUTROPHILS % 48.8 % (39.0-77.0); PLATELET COUNT 69 10^3/UL (140-415); RED BLOOD COUNT 3.16 10^6/ul (4.70-6.10); RED CELL DISTRIBUTION WIDTH 12.8 % (11.5-14.5)
[2018-09-12 06:47] LABS: WHITE BLOOD COUNT 3.3 10^3/ul (4.8-10.8)
[2018-09-12 07:21] LABS: ANION GAP 5 (5-13); BLOOD UREA NITROGEN 40 mg/dl (7-20); CARBON DIOXIDE 27 mmol/L (21-31); CHLORIDE 108 mmol/L (97-110); CREATININE 2.76 mg/dl (0.61-1.24); Estimated GFR 23 mL/min (>60); GLUCOSE 111 mg/dl (70-220); MAGNESIUM 2.2 mg/dl (1.7-2.5); PHOSPHORUS 4.1 mg/dl (2.5-4.9); POTASSIUM 4.4 mmol/L (3.5-5.1); SODIUM 140 mmol/L (135-144)
[2018-09-12] MEDS: LEVALBUTEROL (NEB) 0.63 MG/3 ML AMP HHN ×2 (08:28→15:21)
[2018-09-12] MEDS: ACETYLCYSTEINE 20% 4 ML VIAL NEB ×2 (08:28→15:20)
[2018-09-12] MEDS: AMLODIPINE 2.5 MG TAB PO (09:00)
[2018-09-12] MEDS: ROPINIROLE 0.25 MG TAB PO ×3 (09:29→21:58)
[2018-09-12] MEDS: CEFEPIME 1GM/50 ML (PMX) 50 ML IVPB ×2 (09:29→21:54)
[2018-09-12] MEDS: GABAPENTIN 400 MG CAP PO ×3 (09:30→22:00)
[2018-09-12] MEDS: DOXYCYCLINE 100 MG TAB PO ×2 (09:30→21:56)
[2018-09-12] MEDS: SENNA/DOCUSATE NA (8.6MG/50MG) TAB PO ×2 (09:30→22:06)
[2018-09-12] MEDS: MAGNESIUM OXIDE 400 MG TAB PO ×2 (09:30→21:58)
[2018-09-12] MEDS: CHOLECALCIFEROL 1,000 UNIT TAB PO (09:30)
[2018-09-12] MEDS: GUAIFENESIN LA 600 MG TABSR PO ×2 (09:30→22:03)
[2018-09-12] MEDS: TOPIRAMATE 25 MG TAB PO ×2 (09:34→22:06)
[2018-09-12] MEDS: clonAZEPAM 0.5 MG TAB PO ×3 (09:39→21:55)
[2018-09-12] MEDS: morphine (ER) 30 MG TAB PO ×2 (09:40→22:07)
[2018-09-12] MEDS: RISPERIDONE 2 MG TAB PO ×2 (11:29→22:01)
[2018-09-12] MEDS: DULOXETINE 30 MG CAP DR PO (11:30)
[2018-09-12] MEDS: TAMSULOSIN (SR) 0.4 MG CAP PO (21:58)
[2018-09-12] MEDS: ATORVASTATIN 10 MG TAB PO (22:03)
[2018-09-13] MEDS: LEVALBUTEROL (NEB) 1.25 MG/0.5 ML AMP HHN (01:00)
[2018-09-13] MEDS: ACETYLCYSTEINE 20% 4 ML VIAL NEB ×4 (01:00→23:59)
[2018-09-13] MEDS: IPRATROPIUM (NEB) 0.5 MG/2.5 ML AMP HHN (01:00)
[2018-09-13] MEDS: LEVALBUTEROL (NEB) 0.63 MG/3 ML AMP HHN ×4 (01:02→23:58)
[2018-09-13] MEDS: BISACODYL (EC) 5 MG TAB PO (06:10)
[2018-09-13] MEDS: CEFEPIME 1GM/50 ML (PMX) 50 ML IVPB ×2 (08:18→21:24)
[2018-09-13] MEDS: GABAPENTIN 400 MG CAP PO ×3 (08:21→21:24)
[2018-09-13] MEDS: CHOLECALCIFEROL 1,000 UNIT TAB PO (08:21)
[2018-09-13] MEDS: DOXYCYCLINE 100 MG TAB PO ×2 (08:22→21:24)
[2018-09-13] MEDS: MAGNESIUM OXIDE 400 MG TAB PO ×2 (08:22→21:24)
[2018-09-13] MEDS: GUAIFENESIN LA 600 MG TABSR PO ×2 (08:22→21:24)
[2018-09-13] MEDS: clonAZEPAM 0.5 MG TAB PO ×3 (08:22→21:38)
[2018-09-13] MEDS: DULOXETINE 30 MG CAP DR PO (08:22)
[2018-09-13] MEDS: AMLODIPINE 2.5 MG TAB PO (08:23)
[2018-09-13 09:18] LABS: ADD MAN DIFF? NO
[2018-09-13 09:20] LABS: ABNORMAL IP MESSAGE 1; BASOPHILS % 0.5 % (0.0-2.0); EOSINOPHILS # 0.3 10^3/ul (0.0-0.5); EOSINOPHILS % 7.1 % (0.0-7.0); HEMATOCRIT 30.4 % (42.0-52.0); HEMOGLOBIN 10.2 g/dl (14.0-18.0); LYMPHOCYTES # 0.8 10^3/ul (0.8-2.9); LYMPHOCYTES % 19.2 % (15.0-51.0); MEAN CORPUSCULAR HEMOGLOBIN 32.7 pg (29.0-33.0); MEAN CORPUSCULAR HGB CONC 33.6 g/dl (32.0-37.0); MEAN CORPUSCULAR VOLUME 97.4 fl (82.0-101.0); MEAN PLATELET VOLUME 9.8 fl (7.4-10.4); MONOCYTE # 0.5 10^3/ul (0.3-0.9); MONOCYTES % 12.3 % (0.0-11.0); NEUTROPHIL # 2.5 10^3/ul (1.6-7.5); NEUTROPHILS % 60.7 % (39.0-77.0); PLATELET COUNT 83 10^3/UL (140-415); POSITIVE DIFF @See below; RED BLOOD COUNT 3.12 10^6/ul (4.70-6.10); RED CELL DISTRIBUTION WIDTH 12.7 % (11.5-14.5)
[2018-09-13 09:20] LABS: WHITE BLOOD COUNT 4.1 10^3/ul (4.8-10.8)
[2018-09-13] MEDS: morphine (ER) 30 MG TAB PO ×2 (09:25→21:25)
[2018-09-13] MEDS: ROPINIROLE 0.25 MG TAB PO ×3 (09:25→21:25)
[2018-09-13] MEDS: SENNA/DOCUSATE NA (8.6MG/50MG) TAB PO ×2 (09:25→21:25)
[2018-09-13] MEDS: TOPIRAMATE 25 MG TAB PO ×2 (09:25→21:25)
[2018-09-13] MEDS: RISPERIDONE 2 MG TAB PO ×2 (09:25→21:24)
[2018-09-13 09:41] LABS: ANION GAP 7 (5-13); BLOOD UREA NITROGEN 37 mg/dl (7-20); CALCIUM 8.4 mg/dl (8.4-10.2); CARBON DIOXIDE 25 mmol/L (21-31); CHLORIDE 108 mmol/L (97-110); CREATININE 2.53 mg/dl (0.61-1.24); Estimated GFR 26 mL/min (>60); GLUCOSE 108 mg/dl (70-220); MAGNESIUM 2.2 mg/dl (1.7-2.5); PHOSPHORUS 4.3 mg/dl (2.5-4.9); POTASSIUM 4.4 mmol/L (3.5-5.1); SODIUM 140 mmol/L (135-144)
[2018-09-13] MEDS: VANCOMYCIN 1 GM 250 ML IVPB (13:33)
[2018-09-13] MEDS: TAMSULOSIN (SR) 0.4 MG CAP PO (21:24)
[2018-09-13] MEDS: ATORVASTATIN 10 MG TAB PO (21:24)
[2018-09-14 07:55] LABS: ANION GAP 10 (5-13); BLOOD UREA NITROGEN 39 mg/dl (7-20); CALCIUM 9.3 mg/dl (8.4-10.2); CARBON DIOXIDE 24 mmol/L (21-31); CHLORIDE 113 mmol/L (97-110); CREATININE 2.51 mg/dl (0.61-1.24); Estimated GFR 26 mL/min (>60); GLUCOSE 92 mg/dl (70-220); MAGNESIUM 2.4 mg/dl (1.7-2.5); PHOSPHORUS 4.3 mg/dl (2.5-4.9); POTASSIUM 4.9 mmol/L (3.5-5.1); SODIUM 147 mmol/L (135-144)
[2018-09-14] MEDS: CEFEPIME 1GM/50 ML (PMX) 50 ML IVPB ×2 (08:32→20:25)
[2018-09-14] MEDS: MAGNESIUM OXIDE 400 MG TAB PO ×2 (08:33→20:27)
[2018-09-14] MEDS: GUAIFENESIN LA 600 MG TABSR PO ×2 (08:33→20:25)
[2018-09-14] MEDS: GABAPENTIN 400 MG CAP PO ×3 (08:33→20:26)
[2018-09-14] MEDS: DOXYCYCLINE 100 MG TAB PO (08:33)
[2018-09-14] MEDS: CHOLECALCIFEROL 1,000 UNIT TAB PO (08:33)
[2018-09-14] MEDS: RISPERIDONE 2 MG TAB PO ×2 (08:33→20:27)
[2018-09-14] MEDS: ROPINIROLE 0.25 MG TAB PO ×3 (08:33→20:25)
[2018-09-14] MEDS: clonAZEPAM 0.5 MG TAB PO ×3 (08:33→20:27)
[2018-09-14] MEDS: DULOXETINE 30 MG CAP DR PO (08:34)
[2018-09-14] MEDS: AMLODIPINE 2.5 MG TAB PO (08:34)
[2018-09-14] MEDS: TOPIRAMATE 25 MG TAB PO ×2 (08:34→21:34)
[2018-09-14] MEDS: SENNA/DOCUSATE NA (8.6MG/50MG) TAB PO ×2 (08:35→20:27)
[2018-09-14] MEDS: morphine (ER) 30 MG TAB PO (08:35)
[2018-09-14] MEDS: LEVALBUTEROL (NEB) 0.63 MG/3 ML AMP HHN ×2 (08:43→16:32)
[2018-09-14] MEDS: ACETYLCYSTEINE 20% 4 ML VIAL NEB ×2 (08:43→16:32)
[2018-09-14] MEDS: ATORVASTATIN 10 MG TAB PO (20:26)
[2018-09-14] MEDS: morphine (ER) 15 MG TAB PO (20:26)
[2018-09-14] MEDS: TAMSULOSIN (SR) 0.4 MG CAP PO (20:27)
[2018-09-15] MEDS: ACETYLCYSTEINE 20% 4 ML VIAL NEB ×3 (00:50→16:04)
[2018-09-15] MEDS: LEVALBUTEROL (NEB) 0.63 MG/3 ML AMP HHN ×3 (00:50→16:04)
[2018-09-15] MEDS: VANCOMYCIN 1 GM 250 ML IVPB (01:33)
[2018-09-15 06:39] LABS: ADD MAN DIFF? NO
[2018-09-15 06:45] LABS: WHITE BLOOD COUNT 5.8 10^3/ul (4.8-10.8)
[2018-09-15 06:45] LABS: BASOPHILS % 0.5 % (0.0-2.0); EOSINOPHILS # 0.2 10^3/ul (0.0-0.5); EOSINOPHILS % 3.5 % (0.0-7.0); HEMATOCRIT 31.1 % (42.0-52.0); HEMOGLOBIN 10.5 g/dl (14.0-18.0); LYMPHOCYTES # 0.9 10^3/ul (0.8-2.9); LYMPHOCYTES % 16.3 % (15.0-51.0); MEAN CORPUSCULAR HEMOGLOBIN 32.8 pg (29.0-33.0); MEAN CORPUSCULAR HGB CONC 33.8 g/dl (32.0-37.0); MEAN CORPUSCULAR VOLUME 97.2 fl (82.0-101.0); MEAN PLATELET VOLUME 9.7 fl (7.4-10.4); MONOCYTE # 0.6 10^3/ul (0.3-0.9); MONOCYTES % 10.7 % (0.0-11.0); NEUTROPHIL # 3.9 10^3/ul (1.6-7.5); NEUTROPHILS % 68.3 % (39.0-77.0); PLATELET COUNT 121 10^3/UL (140-415); RED CELL DISTRIBUTION WIDTH 12.4 % (11.5-14.5)
[2018-09-15 07:04] LABS: ANION GAP 6 (5-13); BLOOD UREA NITROGEN 43 mg/dl (7-20); CALCIUM 9.2 mg/dl (8.4-10.2); CARBON DIOXIDE 28 mmol/L (21-31); CHLORIDE 114 mmol/L (97-110); CREATININE 2.71 mg/dl (0.61-1.24); Estimated GFR 24 mL/min (>60); GLUCOSE 112 mg/dl (70-220); MAGNESIUM 2.4 mg/dl (1.7-2.5); PHOSPHORUS 4.6 mg/dl (2.5-4.9); POTASSIUM 4.7 mmol/L (3.5-5.1); SODIUM 148 mmol/L (135-144)
[2018-09-15] MEDS: CEFEPIME 1GM/50 ML (PMX) 50 ML IVPB ×2 (08:28→20:15)
[2018-09-15] MEDS: CHOLECALCIFEROL 1,000 UNIT TAB PO (08:31)
[2018-09-15] MEDS: MAGNESIUM OXIDE 400 MG TAB PO ×2 (08:31→20:16)
[2018-09-15] MEDS: clonAZEPAM 0.5 MG TAB PO ×2 (08:31→20:15)
[2018-09-15] MEDS: GABAPENTIN 400 MG CAP PO ×3 (08:32→20:16)
[2018-09-15] MEDS: morphine (ER) 15 MG TAB PO ×2 (08:32→20:16)
[2018-09-15] MEDS: ROPINIROLE 0.25 MG TAB PO ×3 (08:32→20:16)
[2018-09-15] MEDS: RISPERIDONE 2 MG TAB PO ×2 (08:32→20:16)
[2018-09-15] MEDS: SENNA/DOCUSATE NA (8.6MG/50MG) TAB PO ×2 (08:32→20:16)
[2018-09-15] MEDS: DULOXETINE 30 MG CAP DR PO (08:32)
[2018-09-15] MEDS: TOPIRAMATE 25 MG TAB PO ×2 (08:32→20:16)
[2018-09-15] MEDS: AMLODIPINE 2.5 MG TAB PO (08:33)
[2018-09-15] MEDS: GUAIFENESIN LA 600 MG TABSR PO ×2 (08:33→20:16)
[2018-09-15] MEDS: DEXTROSE 5% 1,000 ML IV (08:43)
[2018-09-15] MEDS: TAMSULOSIN (SR) 0.4 MG CAP PO (20:16)
[2018-09-15] MEDS: ATORVASTATIN 10 MG TAB PO (20:16)
[2018-09-16] MEDS: morphine 2 MG INJ IV
[2018-09-16] MEDS: LEVALBUTEROL (NEB) 0.63 MG/3 ML AMP HHN ×3 (00:33→16:00)
[2018-09-16] MEDS: ACETYLCYSTEINE 20% 4 ML VIAL NEB ×3 (00:33→16:00)
[2018-09-16] MEDS: DEXTROSE 5% 1,000 ML IV (06:22)
[2018-09-16 07:11] LABS: PROCALCITONIN 1.08 ng/mL (<0.10)
[2018-09-16] MEDS: CHOLECALCIFEROL 1,000 UNIT TAB PO (08:36)
[2018-09-16] MEDS: CEFEPIME 1GM/50 ML (PMX) 50 ML IVPB (08:36)
[2018-09-16] MEDS: RISPERIDONE 2 MG TAB PO ×2 (08:37→21:32)
[2018-09-16] MEDS: SENNA/DOCUSATE NA (8.6MG/50MG) TAB PO ×2 (08:37→21:17)
[2018-09-16] MEDS: GUAIFENESIN LA 600 MG TABSR PO ×2 (08:37→21:17)
[2018-09-16] MEDS: GABAPENTIN 400 MG CAP PO ×3 (08:38→21:17)
[2018-09-16] MEDS: AMLODIPINE 2.5 MG TAB PO (08:40)
[2018-09-16] MEDS: MAGNESIUM OXIDE 400 MG TAB PO ×2 (08:41→21:17)
[2018-09-16] MEDS: morphine (ER) 15 MG TAB PO ×2 (08:58→21:17)
[2018-09-16] MEDS: TOPIRAMATE 25 MG TAB PO ×2 (08:58→21:17)
[2018-09-16] MEDS: clonAZEPAM 0.5 MG TAB PO ×2 (08:59→21:17)
[2018-09-16] MEDS: DULOXETINE 30 MG CAP DR PO (08:59)
[2018-09-16] MEDS: ROPINIROLE 0.25 MG TAB PO ×3 (08:59→21:31)
[2018-09-16 11:56] LABS: ANION GAP 8 (5-13); BLOOD UREA NITROGEN 38 mg/dl (7-20); CALCIUM 9.3 mg/dl (8.4-10.2); CARBON DIOXIDE 28 mmol/L (21-31); CHLORIDE 106 mmol/L (97-110); CREATININE 2.42 mg/dl (0.61-1.24); Estimated GFR 27 mL/min (>60); GLUCOSE 121 mg/dl (70-220); MAGNESIUM 2.1 mg/dl (1.7-2.5); PHOSPHORUS 4.8 mg/dl (2.5-4.9); POTASSIUM 4.3 mmol/L (3.5-5.1); SODIUM 142 mmol/L (135-144)
[2018-09-16] MEDS: VANCOMYCIN 1 GM 250 ML IVPB (13:01)
[2018-09-16] MEDS: traMADol 50 MG TAB PO (13:44)
[2018-09-16] MEDS: TAMSULOSIN (SR) 0.4 MG CAP PO (21:17)
[2018-09-16] MEDS: ATORVASTATIN 10 MG TAB PO (21:17)
[2018-09-17] MEDS: ACETYLCYSTEINE 20% 4 ML VIAL NEB ×3 (00:56→16:00)
[2018-09-17] MEDS: LEVALBUTEROL (NEB) 0.63 MG/3 ML AMP HHN ×3 (00:56→16:00)
[2018-09-17] MEDS: DEXTROSE 5% 1,000 ML IV (00:57)
[2018-09-17] MEDS: BISACODYL (EC) 5 MG TAB PO (05:39)
[2018-09-17] MEDS: DOCUSATE SODIUM 100 MG CAP PO (05:39)
[2018-09-17] MEDS: RISPERIDONE 2 MG TAB PO ×2 (08:23→20:48)
[2018-09-17] MEDS: morphine (ER) 15 MG TAB PO ×2 (08:24→20:48)
[2018-09-17] MEDS: DULOXETINE 30 MG CAP DR PO (08:24)
[2018-09-17] MEDS: CHOLECALCIFEROL 1,000 UNIT TAB PO (08:24)
[2018-09-17] MEDS: GUAIFENESIN LA 600 MG TABSR PO ×2 (08:24→20:48)
[2018-09-17] MEDS: clonAZEPAM 0.5 MG TAB PO ×2 (08:24→20:48)
[2018-09-17] MEDS: TOPIRAMATE 25 MG TAB PO ×2 (08:24→20:48)
[2018-09-17] MEDS: SENNA/DOCUSATE NA (8.6MG/50MG) TAB PO ×2 (08:24→20:48)
[2018-09-17] MEDS: GABAPENTIN 400 MG CAP PO ×3 (08:24→20:47)
[2018-09-17] MEDS: MAGNESIUM OXIDE 400 MG TAB PO ×2 (08:24→20:48)
[2018-09-17] MEDS: ROPINIROLE 0.25 MG TAB PO ×3 (08:24→20:48)
[2018-09-17] MEDS: CEFEPIME 1GM/50 ML (PMX) 50 ML IVPB (08:25)
[2018-09-17] MEDS: AMLODIPINE 2.5 MG TAB PO (08:25)
[2018-09-17 14:07] LABS: ADD MAN DIFF? NO
[2018-09-17 14:09] LABS: WHITE BLOOD COUNT 4.6 10^3/ul (4.8-10.8)
[2018-09-17 14:09] LABS: BASOPHILS % 0.9 % (0.0-2.0); EOSINOPHILS # 0.3 10^3/ul (0.0-0.5); EOSINOPHILS % 5.6 % (0.0-7.0); HEMATOCRIT 33.5 % (42.0-52.0); HEMOGLOBIN 11.2 g/dl (14.0-18.0); LYMPHOCYTES # 1.3 10^3/ul (0.8-2.9); LYMPHOCYTES % 28.9 % (15.0-51.0); MEAN CORPUSCULAR HEMOGLOBIN 31.8 pg (29.0-33.0); MEAN CORPUSCULAR HGB CONC 33.4 g/dl (32.0-37.0); MEAN CORPUSCULAR VOLUME 95.2 fl (82.0-101.0); MONOCYTE # 0.6 10^3/ul (0.3-0.9); MONOCYTES % 13.7 % (0.0-11.0); NEUTROPHIL # 2.3 10^3/ul (1.6-7.5); NEUTROPHILS % 49.4 % (39.0-77.0); PLATELET COUNT 133 10^3/UL (140-415); RED BLOOD COUNT 3.52 10^6/ul (4.70-6.10); RED CELL DISTRIBUTION WIDTH 12.2 % (11.5-14.5)
[2018-09-17 14:27] LABS: ANION GAP 8 (5-13); BLOOD UREA NITROGEN 39 mg/dl (7-20); CALCIUM 9.2 mg/dl (8.4-10.2); CARBON DIOXIDE 28 mmol/L (21-31); CHLORIDE 106 mmol/L (97-110); CREATININE 2.49 mg/dl (0.61-1.24); Estimated GFR 26 mL/min (>60); GLUCOSE 101 mg/dl (70-220); MAGNESIUM 2.4 mg/dl (1.7-2.5); PHOSPHORUS 5.5 mg/dl (2.5-4.9); POTASSIUM 4.5 mmol/L (3.5-5.1); SODIUM 142 mmol/L (135-144)
[2018-09-17] MEDS: LACTULOSE ENEMA 1,000 ML BTL PR (17:00)
[2018-09-17] MEDS: LACTULOSE 30ML CUP PO (18:04)
[2018-09-17 18:47] LABS: PROCALCITONIN 0.49 ng/mL (0.00-0.10)
[2018-09-17] MEDS: ATORVASTATIN 10 MG TAB PO (20:47)
[2018-09-17] MEDS: TAMSULOSIN (SR) 0.4 MG CAP PO (20:48)
[2018-09-18] MEDS: LORAZEPAM 1 MG TAB PO (00:25)
[2018-09-18] MEDS: LEVALBUTEROL (NEB) 0.63 MG/3 ML AMP HHN ×3 (01:02→16:00)
[2018-09-18] MEDS: ACETYLCYSTEINE 20% 4 ML VIAL NEB ×3 (01:03→16:00)
[2018-09-18 01:08] LABS: VANCOMYCIN,TROUGH 12.5 ug/ml (10.0-20.0)
[2018-09-18] MEDS: VANCOMYCIN 1 GM 250 ML IVPB (03:08)
[2018-09-18] MEDS: DULOXETINE 30 MG CAP DR PO (08:28)
[2018-09-18] MEDS: GABAPENTIN 400 MG CAP PO ×3 (08:29→20:17)
[2018-09-18] MEDS: morphine (ER) 15 MG TAB PO ×2 (08:29→20:17)
[2018-09-18] MEDS: clonAZEPAM 0.5 MG TAB PO ×2 (08:29→20:16)
[2018-09-18] MEDS: CHOLECALCIFEROL 1,000 UNIT TAB PO (08:29)
[2018-09-18] MEDS: GUAIFENESIN LA 600 MG TABSR PO ×2 (08:30→20:17)
[2018-09-18] MEDS: MAGNESIUM OXIDE 400 MG TAB PO ×2 (08:30→20:17)
[2018-09-18] MEDS: RISPERIDONE 2 MG TAB PO ×2 (08:30→20:17)
[2018-09-18] MEDS: SENNA/DOCUSATE NA (8.6MG/50MG) TAB PO ×2 (08:30→20:17)
[2018-09-18] MEDS: TOPIRAMATE 25 MG TAB PO ×2 (08:30→20:17)
[2018-09-18] MEDS: AMLODIPINE 2.5 MG TAB PO (08:30)
[2018-09-18] MEDS: CEFEPIME 1GM/50 ML (PMX) 50 ML IVPB (08:31)
[2018-09-18] MEDS: ROPINIROLE 0.25 MG TAB PO ×3 (08:31→20:16)
[2018-09-18 11:55] LABS: ADD MAN DIFF? NO
[2018-09-18 11:57] LABS: BASOPHILS % 0.8 % (0.0-2.0); EOSINOPHILS # 0.2 10^3/ul (0.0-0.5); EOSINOPHILS % 4.6 % (0.0-7.0); HEMATOCRIT 33.2 % (42.0-52.0); HEMOGLOBIN 11.3 g/dl (14.0-18.0); LYMPHOCYTES # 0.9 10^3/ul (0.8-2.9); LYMPHOCYTES % 23.1 % (15.0-51.0); MEAN CORPUSCULAR HEMOGLOBIN 32.3 pg (29.0-33.0); MEAN CORPUSCULAR VOLUME 94.9 fl (82.0-101.0); MEAN PLATELET VOLUME 9.7 fl (7.4-10.4); MONOCYTE # 0.5 10^3/ul (0.3-0.9); MONOCYTES % 12.6 % (0.0-11.0); NEUTROPHIL # 2.1 10^3/ul (1.6-7.5); NEUTROPHILS % 57.3 % (39.0-77.0); PLATELET COUNT 134 10^3/UL (140-415); RED CELL DISTRIBUTION WIDTH 11.9 % (11.5-14.5)
[2018-09-18 11:57] LABS: WHITE BLOOD COUNT 3.7 10^3/ul (4.8-10.8)
[2018-09-18 12:19] LABS: ANION GAP 9 (5-13); BLOOD UREA NITROGEN 38 mg/dl (7-20); CARBON DIOXIDE 26 mmol/L (21-31); CHLORIDE 106 mmol/L (97-110); CREATININE 2.39 mg/dl (0.61-1.24); Estimated GFR 27 mL/min (>60); GLUCOSE 114 mg/dl (70-220); MAGNESIUM 2.3 mg/dl (1.7-2.5); PHOSPHORUS 4.7 mg/dl (2.5-4.9); POTASSIUM 4.1 mmol/L (3.5-5.1); SODIUM 141 mmol/L (135-144)
[2018-09-18] MEDS: LEVOFLOXACIN 750 MG TABLET PO (18:38)
[2018-09-18] MEDS: LACTULOSE ENEMA 1,000 ML BTL PR (18:40)
[2018-09-18] MEDS: TAMSULOSIN (SR) 0.4 MG CAP PO (20:17)
[2018-09-18] MEDS: ATORVASTATIN 10 MG TAB PO (20:17)
[2018-09-19] MEDS: morphine 2 MG INJ IV (05:20)
[2018-09-19 05:32] LABS: ADD MAN DIFF? NO
[2018-09-19 05:39] LABS: BASOPHILS % 0.7 % (0.0-2.0); EOSINOPHILS # 0.1 10^3/ul (0.0-0.5); EOSINOPHILS % 2.2 % (0.0-7.0); HEMATOCRIT 34.9 % (42.0-52.0); HEMOGLOBIN 11.8 g/dl (14.0-18.0); LYMPHOCYTES # 1.2 10^3/ul (0.8-2.9); LYMPHOCYTES % 20.3 % (15.0-51.0); MEAN CORPUSCULAR HGB CONC 33.8 g/dl (32.0-37.0); MEAN CORPUSCULAR VOLUME 94.6 fl (82.0-101.0); MEAN PLATELET VOLUME 9.9 fl (7.4-10.4); MONOCYTE # 0.6 10^3/ul (0.3-0.9); MONOCYTES % 10.4 % (0.0-11.0); NEUTROPHIL # 3.9 10^3/ul (1.6-7.5); NEUTROPHILS % 65.7 % (39.0-77.0); PLATELET COUNT 149 10^3/UL (140-415); RED BLOOD COUNT 3.69 10^6/ul (4.70-6.10); RED CELL DISTRIBUTION WIDTH 11.9 % (11.5-14.5)
[2018-09-19 06:09] LABS: MAGNESIUM 2.7 mg/dl (1.7-2.5)
[2018-09-19 06:09] LABS: PHOSPHORUS 4.8 mg/dl (2.5-4.9)
[2018-09-19 06:16] LABS: ANION GAP 11 (5-13); BLOOD UREA NITROGEN 42 mg/dl (7-20); CALCIUM 9.3 mg/dl (8.4-10.2); CARBON DIOXIDE 23 mmol/L (21-31); CHLORIDE 107 mmol/L (97-110); CREATININE 2.71 mg/dl (0.61-1.24); Estimated GFR 24 mL/min (>60); GLUCOSE 95 mg/dl (70-220); POTASSIUM 4.8 mmol/L (3.5-5.1); SODIUM 141 mmol/L (135-144)
[2018-09-19] MEDS: ACETYLCYSTEINE 20% 4 ML VIAL NEB ×2 (08:00)
[2018-09-19] MEDS: LEVALBUTEROL (NEB) 0.63 MG/3 ML AMP HHN ×4 (08:00→23:27)
[2018-09-19] MEDS: morphine (ER) 15 MG TAB PO (09:00)
[2018-09-19] MEDS: DULOXETINE 30 MG CAP DR PO (09:11)
[2018-09-19] MEDS: AMLODIPINE 2.5 MG TAB PO (09:12)
[2018-09-19] MEDS: MAGNESIUM OXIDE 400 MG TAB PO ×2 (09:12→21:06)
[2018-09-19] MEDS: CHOLECALCIFEROL 1,000 UNIT TAB PO (09:12)
[2018-09-19] MEDS: clonAZEPAM 0.5 MG TAB PO ×2 (09:12→21:16)
[2018-09-19] MEDS: RISPERIDONE 2 MG TAB PO ×2 (09:13→21:05)
[2018-09-19] MEDS: GABAPENTIN 400 MG CAP PO ×3 (09:13→21:06)
[2018-09-19] MEDS: ROPINIROLE 0.25 MG TAB PO ×2 (09:13→12:23)
[2018-09-19] MEDS: traMADol 50 MG TAB PO ×3 (09:13→23:21)
[2018-09-19] MEDS: SENNA/DOCUSATE NA (8.6MG/50MG) TAB PO ×2 (09:13→21:06)
[2018-09-19] MEDS: TOPIRAMATE 25 MG TAB PO ×2 (09:14→21:06)
[2018-09-19] MEDS: GUAIFENESIN LA 600 MG TABSR PO ×2 (09:14→21:06)
[2018-09-19 14:12] LABS: THYROID STIMULATING HORMONE 0.784 MIU/L (0.465-4.680)
[2018-09-19 14:38] LABS: FREE T4 (FREE THYROXINE) 1.68 ng/dl (0.78-2.44)
[2018-09-19 18:51] LABS: ADD UMIC YES; UR ASCORBIC ACID NEGATIVE (NEGATIVE); UR BILIRUBIN (Dip) NEGATIVE (NEGATIVE); UR BLOOD (Dip) NEGATIVE (NEGATIVE); UR CLARITY CLEAR (CLEAR); UR COLOR YELLOW (YELLOW); UR GLUCOSE (Dip) NEGATIVE (NEGATIVE); UR KETONES (Dip) NEGATIVE (NEGATIVE); UR LEUKOCYTE ESTERASE (Dip) NEGATIVE Leu/ul (NEGATIVE); UR NITRITE (Dip) NEGATIVE (NEGATIVE); UR RBC 2 /HPF (0-5); UR SPECIFIC GRAVITY (Dip) 1.006 (1.003-1.030); UR TOTAL PROTEIN (Dip) 2+ mg/dl (NEGATIVE); UR UROBILINOGEN (Dip) NEGATIVE (NEGATIVE); UR WBC 2 /HPF (0-5)
[2018-09-19] MEDS: ATORVASTATIN 10 MG TAB PO (21:06)
[2018-09-19] MEDS: TAMSULOSIN (SR) 0.4 MG CAP PO (21:16)
[2018-09-20 07:07] LABS: ADD MAN DIFF? NO
[2018-09-20 07:22] LABS: BASOPHIL # 0.1 10^3/ul (0.0-0.1); EOSINOPHILS # 0.2 10^3/ul (0.0-0.5); EOSINOPHILS % 3.8 % (0.0-7.0); HEMATOCRIT 33.6 % (42.0-52.0); HEMOGLOBIN 11.3 g/dl (14.0-18.0); LYMPHOCYTES # 1.4 10^3/ul (0.8-2.9); LYMPHOCYTES % 30.2 % (15.0-51.0); MEAN CORPUSCULAR HEMOGLOBIN 31.6 pg (29.0-33.0); MEAN CORPUSCULAR HGB CONC 33.6 g/dl (32.0-37.0); MEAN CORPUSCULAR VOLUME 93.9 fl (82.0-101.0); MONOCYTE # 0.4 10^3/ul (0.3-0.9); MONOCYTES % 8.2 % (0.0-11.0); NEUTROPHIL # 2.7 10^3/ul (1.6-7.5); PLATELET COUNT 143 10^3/UL (140-415); RED BLOOD COUNT 3.58 10^6/ul (4.70-6.10); RED CELL DISTRIBUTION WIDTH 11.9 % (11.5-14.5)
[2018-09-20 07:22] LABS: WHITE BLOOD COUNT 4.8 10^3/ul (4.8-10.8)
[2018-09-20 07:37] LABS: ANION GAP 11 (5-13); BLOOD UREA NITROGEN 49 mg/dl (7-20); CALCIUM 8.8 mg/dl (8.4-10.2); CARBON DIOXIDE 23 mmol/L (21-31); CHLORIDE 105 mmol/L (97-110); CREATININE 2.94 mg/dl (0.61-1.24); Estimated GFR 22 mL/min (>60); GLUCOSE 90 mg/dl (70-220); POTASSIUM 4.5 mmol/L (3.5-5.1); SODIUM 139 mmol/L (135-144)
[2018-09-20 07:52] LABS: INR 1.07; PT RATIO 1.1
[2018-09-20 07:53] LABS: PARTIAL THROMBOPLASTIN TIME 29.1 Sec (23.0-35.0)
[2018-09-20] MEDS: LEVALBUTEROL (NEB) 0.63 MG/3 ML AMP HHN ×2 (08:00→16:00)
[2018-09-20 08:06] LABS: PROSTATE SPECIFIC ANTIGEN 0.4 ng/ml (0.0-4.0)
[2018-09-20 08:14] LABS: MAGNESIUM 2.8 mg/dl (1.7-2.5)
[2018-09-20 08:14] LABS: PHOSPHORUS 5.7 mg/dl (2.5-4.9)
[2018-09-20] MEDS: CHOLECALCIFEROL 1,000 UNIT TAB PO (08:22)
[2018-09-20] MEDS: GUAIFENESIN LA 600 MG TABSR PO ×2 (08:22→20:30)
[2018-09-20] MEDS: clonAZEPAM 0.5 MG TAB PO ×2 (08:22→20:35)
[2018-09-20] MEDS: DULOXETINE 30 MG CAP DR PO (08:23)
[2018-09-20] MEDS: SENNA/DOCUSATE NA (8.6MG/50MG) TAB PO ×2 (08:23→20:30)
[2018-09-20] MEDS: TOPIRAMATE 25 MG TAB PO ×2 (08:23→20:31)
[2018-09-20] MEDS: AMLODIPINE 2.5 MG TAB PO (08:23)
[2018-09-20] MEDS: RISPERIDONE 2 MG TAB PO ×2 (08:23→20:31)
[2018-09-20] MEDS: MAGNESIUM OXIDE 400 MG TAB PO ×2 (08:23→20:29)
[2018-09-20] MEDS: GABAPENTIN 400 MG CAP PO ×3 (08:23→20:29)
[2018-09-20] MEDS: SOD CHLORIDE 0.9% 1,000 ML IV (08:45)
[2018-09-20] MEDS: LORATADINE 10 MG TAB PO (12:10)
[2018-09-20] MEDS ORDERED: POLYMYXIN/BACITRACIN 1L IRRIG (14:24)
[2018-09-20] MEDS: SOD CHLORIDE 0.9% 500 ML IV (14:56)
[2018-09-20] MEDS ORDERED: SOD CHLORIDE 0.9% 500 ML (14:59)
[2018-09-20] MEDS ORDERED: IODIXANOL LOCM 50 ML BTL (14:59)
[2018-09-20] MEDS ORDERED: LIDOCAINE 1%/EPI (1:100,000) (MDV) 20 ML (14:59)
[2018-09-20] MEDS ORDERED: CEFAZOLIN 1 GM/50 ML (PMX) 100 ML IVPB (15:15)
[2018-09-20] MEDS ORDERED: MIDAZOLAM 1 MG/ML 2 ML INJ (15:19)
[2018-09-20] MEDS ORDERED: FENTAnyl 50 MCG/ML VIAL (15:19)
[2018-09-20] MEDS ORDERED: PROPOFOL 40 ML (15:20)
[2018-09-20] MEDS ORDERED: LIDOCAINE 2% (SDV) 5 ML INJ (15:20)
[2018-09-20] MEDS ORDERED: DIPHENHYDRAMINE 50 MG INJ IV (17:30)
[2018-09-20] MEDS ORDERED: ONDANSETRON 4 MG INJ IV (17:30)
[2018-09-20] MEDS ORDERED: HYDROmorphONE 1 MG/5 ML IV SYRINGE IV ×2 (17:30)
[2018-09-20] MEDS ORDERED: METOCLOPRAMIDE 10 MG INJ IV (17:30)
[2018-09-20] MEDS ORDERED: MEPERIDINE 25 MG INJ IV (17:30)
[2018-09-20] MEDS ORDERED: FENTAnyl 50 MCG/ML VIAL IV (17:30)
[2018-09-20] MEDS: LEVOFLOXACIN 750 MG TABLET PO (18:08)
[2018-09-20] MEDS: ATORVASTATIN 10 MG TAB PO (20:29)
[2018-09-20] MEDS: TAMSULOSIN (SR) 0.4 MG CAP PO (20:30)
[2018-09-20] MEDS: CEFAZOLIN 1 GM/50 ML (PMX) 50 ML IVPB (21:17)
[2018-09-20] MEDS: morphine 2 MG INJ IV (21:18)
[2018-09-21] MEDS: morphine 2 MG INJ IV ×4 (00:06→23:23)
[2018-09-21] MEDS: CEFAZOLIN 1 GM/50 ML (PMX) 50 ML IVPB ×2 (05:28→14:16)
[2018-09-21] MEDS: SOD CHLORIDE 0.9% 1,000 ML IV (05:29)
[2018-09-21] MEDS: ACETAMINOPHEN 325 MG TAB PO ×2 (05:49→23:23)
[2018-09-21] MEDS: hydrALAzine 20 MG INJ IV (05:49)
[2018-09-21 06:33] LABS: ADD MAN DIFF? NO
[2018-09-21] MEDS: LEVALBUTEROL (NEB) 0.63 MG/3 ML AMP HHN ×4 (08:00→22:00)
[2018-09-21 08:13] LABS: WHITE BLOOD COUNT 5.8 10^3/ul (4.8-10.8)
[2018-09-21 08:13] LABS: BASOPHILS % 0.3 % (0.0-2.0); EOSINOPHILS # 0.1 10^3/ul (0.0-0.5); EOSINOPHILS % 2.1 % (0.0-7.0); HEMATOCRIT 34.2 % (42.0-52.0); LYMPHOCYTES % 16.9 % (15.0-51.0); MEAN CORPUSCULAR HEMOGLOBIN 31.9 pg (29.0-33.0); MEAN CORPUSCULAR HGB CONC 35.1 g/dl (32.0-37.0); MEAN PLATELET VOLUME 9.8 fl (7.4-10.4); MONOCYTE # 0.4 10^3/ul (0.3-0.9); MONOCYTES % 6.7 % (0.0-11.0); NEUTROPHIL # 4.2 10^3/ul (1.6-7.5); NEUTROPHILS % 72.8 % (39.0-77.0); PLATELET COUNT 125 10^3/UL (140-415); RED BLOOD COUNT 3.76 10^6/ul (4.70-6.10)
[2018-09-21 08:15] LABS: ANION GAP 10 (5-13); BLOOD UREA NITROGEN 47 mg/dl (7-20); CALCIUM 9.1 mg/dl (8.4-10.2); CARBON DIOXIDE 19 mmol/L (21-31); CHLORIDE 112 mmol/L (97-110); CREATININE 2.77 mg/dl (0.61-1.24); Estimated GFR 23 mL/min (>60); GLUCOSE 90 mg/dl (70-220); POTASSIUM 4.8 mmol/L (3.5-5.1); SODIUM 141 mmol/L (135-144)
[2018-09-21 08:29] LABS: PHOSPHORUS 4.4 mg/dl (2.5-4.9)
[2018-09-21 08:29] LABS: MAGNESIUM 2.4 mg/dl (1.7-2.5)
[2018-09-21] MEDS: CHOLECALCIFEROL 1,000 UNIT TAB PO (09:24)
[2018-09-21] MEDS: DULOXETINE 30 MG CAP DR PO (09:24)
[2018-09-21] MEDS: GABAPENTIN 400 MG CAP PO ×3 (09:24→20:39)
[2018-09-21] MEDS: clonAZEPAM 0.5 MG TAB PO ×2 (09:24→20:39)
[2018-09-21] MEDS: GUAIFENESIN LA 600 MG TABSR PO ×2 (09:24→20:38)
[2018-09-21] MEDS: MAGNESIUM OXIDE 400 MG TAB PO ×2 (09:25→20:39)
[2018-09-21] MEDS: TOPIRAMATE 25 MG TAB PO ×2 (09:25→20:39)
[2018-09-21] MEDS: SENNA/DOCUSATE NA (8.6MG/50MG) TAB PO ×2 (09:25→20:38)
[2018-09-21] MEDS: RISPERIDONE 2 MG TAB PO ×2 (09:25→20:38)
[2018-09-21] MEDS: AMLODIPINE 2.5 MG TAB PO (09:25)
[2018-09-21] MEDS: LORATADINE 10 MG TAB PO (09:26)
[2018-09-21] MEDS: TAMSULOSIN (SR) 0.4 MG CAP PO (20:38)
[2018-09-21] MEDS: ATORVASTATIN 10 MG TAB PO (20:38)
[2018-09-22] MEDS: SOD CHLORIDE 0.9% 1,000 ML IV ×2 (02:12→22:08)
[2018-09-22] MEDS: morphine 2 MG INJ IV ×9 (06:19→23:28)
[2018-09-22 06:42] LABS: ADD MAN DIFF? NO
[2018-09-22 06:58] LABS: WHITE BLOOD COUNT 5.2 10^3/ul (4.8-10.8)
[2018-09-22 06:58] LABS: BASOPHIL # 0.1 10^3/ul (0.0-0.1); EOSINOPHILS # 0.2 10^3/ul (0.0-0.5); EOSINOPHILS % 2.9 % (0.0-7.0); HEMOGLOBIN 12.1 g/dl (14.0-18.0); LYMPHOCYTES % 19.1 % (15.0-51.0); MEAN CORPUSCULAR HEMOGLOBIN 32.3 pg (29.0-33.0); MEAN CORPUSCULAR HGB CONC 34.6 g/dl (32.0-37.0); MEAN CORPUSCULAR VOLUME 93.3 fl (82.0-101.0); MONOCYTE # 0.3 10^3/ul (0.3-0.9); NEUTROPHIL # 3.6 10^3/ul (1.6-7.5); PLATELET COUNT 137 10^3/UL (140-415); RED BLOOD COUNT 3.75 10^6/ul (4.70-6.10); RED CELL DISTRIBUTION WIDTH 12.2 % (11.5-14.5)
[2018-09-22 07:14] LABS: ANION GAP 9 (5-13); BLOOD UREA NITROGEN 44 mg/dl (7-20); CARBON DIOXIDE 23 mmol/L (21-31); CHLORIDE 110 mmol/L (97-110); CREATININE 2.77 mg/dl (0.61-1.24); Estimated GFR 23 mL/min (>60); GLUCOSE 93 mg/dl (70-220); MAGNESIUM 2.6 mg/dl (1.7-2.5); POTASSIUM 4.7 mmol/L (3.5-5.1); SODIUM 142 mmol/L (135-144)
[2018-09-22] MEDS: LEVALBUTEROL (NEB) 0.63 MG/3 ML AMP HHN ×2 (08:00→16:00)
[2018-09-22] MEDS: DULOXETINE 30 MG CAP DR PO (08:56)
[2018-09-22] MEDS: CHOLECALCIFEROL 1,000 UNIT TAB PO (08:57)
[2018-09-22] MEDS: GUAIFENESIN LA 600 MG TABSR PO ×2 (08:57→20:22)
[2018-09-22] MEDS: clonAZEPAM 0.5 MG TAB PO ×2 (08:57→20:22)
[2018-09-22] MEDS: LORATADINE 10 MG TAB PO (08:57)
[2018-09-22] MEDS: SENNA/DOCUSATE NA (8.6MG/50MG) TAB PO ×2 (08:57→20:21)
[2018-09-22] MEDS: AMLODIPINE 2.5 MG TAB PO (08:58)
[2018-09-22] MEDS: TOPIRAMATE 25 MG TAB PO ×2 (08:58→20:22)
[2018-09-22] MEDS: RISPERIDONE 2 MG TAB PO ×2 (08:58→20:22)
[2018-09-22] MEDS: MAGNESIUM OXIDE 400 MG TAB PO ×2 (08:58→20:21)
[2018-09-22] MEDS: GABAPENTIN 400 MG CAP PO ×3 (08:59→20:21)
[2018-09-22] MEDS: LEVOFLOXACIN 750 MG TABLET PO (16:38)
[2018-09-22] MEDS: TAMSULOSIN (SR) 0.4 MG CAP PO (20:21)
[2018-09-22] MEDS: traMADol 50 MG TAB PO (20:22)
[2018-09-22] MEDS: ATORVASTATIN 10 MG TAB PO (20:22)
[2018-09-22] MEDS: ACETAMINOPHEN 325 MG TAB PO (23:28)
[2018-09-23] MEDS: ACETAMINOPHEN 325 MG TAB PO ×2 (05:26→23:10)
[2018-09-23] MEDS: morphine 2 MG INJ IV ×7 (05:26→22:46)
[2018-09-23] MEDS: LEVALBUTEROL (NEB) 0.63 MG/3 ML AMP HHN ×3 (08:00→16:00)
[2018-09-23] MEDS: DULOXETINE 30 MG CAP DR PO (08:44)
[2018-09-23] MEDS: GUAIFENESIN LA 600 MG TABSR PO ×2 (08:44→21:35)
[2018-09-23] MEDS: MAGNESIUM OXIDE 400 MG TAB PO ×2 (08:44→21:35)
[2018-09-23] MEDS: TOPIRAMATE 25 MG TAB PO ×2 (08:44→21:35)
[2018-09-23] MEDS: CHOLECALCIFEROL 1,000 UNIT TAB PO (08:44)
[2018-09-23] MEDS: GABAPENTIN 400 MG CAP PO ×3 (08:44→21:35)
[2018-09-23] MEDS: AMLODIPINE 2.5 MG TAB PO (08:44)
[2018-09-23] MEDS: LORATADINE 10 MG TAB PO (08:44)
[2018-09-23] MEDS: RISPERIDONE 2 MG TAB PO ×2 (08:44→21:35)
[2018-09-23] MEDS: SENNA/DOCUSATE NA (8.6MG/50MG) TAB PO ×2 (08:44→21:35)
[2018-09-23] MEDS: clonAZEPAM 0.5 MG TAB PO ×2 (08:50→22:45)
[2018-09-23] MEDS: ATORVASTATIN 10 MG TAB PO (21:34)
[2018-09-23] MEDS: TAMSULOSIN (SR) 0.4 MG CAP PO (21:34)
[2018-09-24] MEDS: morphine 2 MG INJ IV ×3 (02:57→07:28)
[2018-09-24 05:11] LABS: ADD MAN DIFF? NO
[2018-09-24 05:23] LABS: BASOPHILS % 0.8 % (0.0-2.0); EOSINOPHILS # 0.2 10^3/ul (0.0-0.5); EOSINOPHILS % 3.6 % (0.0-7.0); HEMATOCRIT 35.3 % (42.0-52.0); HEMOGLOBIN 12.1 g/dl (14.0-18.0); LYMPHOCYTES # 1.1 10^3/ul (0.8-2.9); LYMPHOCYTES % 23.7 % (15.0-51.0); MEAN CORPUSCULAR HEMOGLOBIN 32.3 pg (29.0-33.0); MEAN CORPUSCULAR HGB CONC 34.3 g/dl (32.0-37.0); MEAN CORPUSCULAR VOLUME 94.1 fl (82.0-101.0); MEAN PLATELET VOLUME 9.8 fl (7.4-10.4); MONOCYTE # 0.4 10^3/ul (0.3-0.9); MONOCYTES % 8.8 % (0.0-11.0); NEUTROPHILS % 62.5 % (39.0-77.0); PLATELET COUNT 142 10^3/UL (140-415); RED BLOOD COUNT 3.75 10^6/ul (4.70-6.10)
[2018-09-24 05:23] LABS: WHITE BLOOD COUNT 4.8 10^3/ul (4.8-10.8)
[2018-09-24 05:29] LABS: ANION GAP 10 (5-13); BLOOD UREA NITROGEN 45 mg/dl (7-20); CARBON DIOXIDE 20 mmol/L (21-31); CHLORIDE 110 mmol/L (97-110); CREATININE 2.63 mg/dl (0.61-1.24); Estimated GFR 24 mL/min (>60); GLUCOSE 90 mg/dl (70-220); MAGNESIUM 2.5 mg/dl (1.7-2.5); PHOSPHORUS 5.7 mg/dl (2.5-4.9); POTASSIUM 4.7 mmol/L (3.5-5.1); SODIUM 140 mmol/L (135-144)
[2018-09-24] MEDS: LEVALBUTEROL (NEB) 0.63 MG/3 ML AMP HHN ×2 (08:00)
[2018-09-24] MEDS: GABAPENTIN 400 MG CAP PO ×2 (08:41→13:04)
[2018-09-24] MEDS: clonAZEPAM 0.5 MG TAB PO (08:41)
[2018-09-24] MEDS: GUAIFENESIN LA 600 MG TABSR PO (08:41)
[2018-09-24] MEDS: DULOXETINE 30 MG CAP DR PO (08:41)
[2018-09-24] MEDS: CHOLECALCIFEROL 1,000 UNIT TAB PO (08:41)
[2018-09-24] MEDS: TOPIRAMATE 25 MG TAB PO (08:41)
[2018-09-24] MEDS: SENNA/DOCUSATE NA (8.6MG/50MG) TAB PO (08:41)
[2018-09-24] MEDS: LORATADINE 10 MG TAB PO (08:41)
[2018-09-24] MEDS: RISPERIDONE 2 MG TAB PO (08:41)
[2018-09-24] MEDS: MAGNESIUM OXIDE 400 MG TAB PO (08:41)
[2018-09-24] MEDS: AMLODIPINE 2.5 MG TAB PO (08:42)
[2018-09-24] MEDS: ACETAMINOPHEN 325 MG TAB PO (11:37)
[2018-09-24] MEDS: LEVOFLOXACIN 750 MG TABLET PO (13:04)
[2018-09-24] MEDS: traMADol 50 MG TAB PO (13:05)
== END 2018-09-24 14:14 | disposition home or self-care (01) | DRG 242 ==
LOC: TEL 09-10 21:55 → PP2 09-16 18:58 → TEL 09-19 12:00 → E/R 21:34 → MS1 09-23 22:56 → 6WM 23:55 → MS1 09-07 23:15
PROC: 0JH606Z Insertion of Pacemaker, Dual Chamber into Chest Subcutaneous Tissue and Fascia, Open Approach (ICD-10-PCS; principal; 2018-09-20 15:00)
PROC: 02HK3JZ Insertion of Pacemaker Lead into Right Ventricle, Percutaneous Approach (ICD-10-PCS; 2018-09-20 15:00)
PROC: 02H63JZ Insertion of Pacemaker Lead into Right Atrium, Percutaneous Approach (ICD-10-PCS; 2018-09-20 15:00)
DX: R00.1 Bradycardia, unspecified (principal); J69.0 Pneumonitis due to inhalation of food and vomit; J96.01 Acute respiratory failure with hypoxia; D61.818 Other pancytopenia; N17.9 Acute kidney failure, unspecified; N18.4 Chronic kidney disease, stage 4 (severe); B18.2 Chronic viral hepatitis C; E83.42 Hypomagnesemia; E78.5 Hyperlipidemia, unspecified; F25.0 Schizoaffective disorder, bipolar type; F43.10 Post-traumatic stress disorder, unspecified; F41.1 Generalized anxiety disorder; F17.200 Nicotine dependence, unspecified, uncomplicated; I12.9 Hypertensive chronic kidney disease with stage 1 through stage 4 chronic kidney disease, or unspecified chronic kidney disease; J32.9 Chronic sinusitis, unspecified; N40.0 Benign prostatic hyperplasia without lower urinary tract symptoms; R51 Headache; R53.81 Other malaise; R62.7 Adult failure to thrive; Z91.19 Patient's noncompliance with other medical treatment and regimen; Z86.73 Personal history of transient ischemic attack (TIA), and cerebral infarction without residual deficits; Z68.26 Body mass index [BMI] 26.0-26.9, adult
CPT/HCPCS: 36415; 36600; 70450; 70553; 71045; 76775; 80048; 80053; 80061; 80202; 80307; 81001; 81003; 82306; 82550; 82553; 82803; 83036; 83735; 84100; 84145; 84153; 84154; 84155; 84300; 84439; 84443; 84484; 85025; 85610; 85730; 87086; 92526; 92610; 93005; 93306; 94640; 94664; 96374; 96375; 97110; 97161; 97164; 97530; 99285-25; G0378

== ENCOUNTER 2018-11-06 22:05 | Emergency (ER) | payer MEDICARE, OTHER ==
[2018-11-06] MEDS: IPRATROPIUM (NEB) 0.5 MG/2.5 ML AMP INH (23:47)
[2018-11-06] MEDS: ALBUTEROL 0.083% (NEB) 2.5 MG/3 ML AMP HHN (23:47)
[2018-11-07 02:12] LABS: ADD MAN DIFF? NO
[2018-11-07 02:16] LABS: ABNORMAL IP MESSAGE 1; BASOPHILS % 0.4 % (0.0-2.0); EOSINOPHILS # 0.1 10^3/ul (0.0-0.5); EOSINOPHILS % 3.1 % (0.0-7.0); HEMATOCRIT 33.4 % (42.0-52.0); HEMOGLOBIN 11.1 g/dl (14.0-18.0); LYMPHOCYTES % 20.7 % (15.0-51.0); MEAN CORPUSCULAR HEMOGLOBIN 31.7 pg (29.0-33.0); MEAN CORPUSCULAR HGB CONC 33.2 g/dl (32.0-37.0); MEAN CORPUSCULAR VOLUME 95.4 fl (82.0-101.0); MEAN PLATELET VOLUME 10.4 fl (7.4-10.4); MONOCYTE # 0.4 10^3/ul (0.3-0.9); MONOCYTES % 7.8 % (0.0-11.0); NEUTROPHIL # 3.1 10^3/ul (1.6-7.5); NEUTROPHILS % 67.8 % (39.0-77.0); PLATELET COUNT 80 10^3/UL (140-415); POSITIVE DIFF @See below; RED CELL DISTRIBUTION WIDTH 12.6 % (11.5-14.5)
[2018-11-07 02:16] LABS: WHITE BLOOD COUNT 4.6 10^3/ul (4.8-10.8)
[2018-11-07] MEDS: LORAZEPAM 2 MG INJ IV (02:30)
[2018-11-07 02:55] LABS: ALANINE AMINOTRANSFERASE 12 IU/L (13-69); ALBUMIN 3.5 g/dl (3.3-4.9); ALKALINE PHOSPHATASE 60 IU/L (42-121); ANION GAP 13 (5-13); ASPARTATE AMINO TRANSFERASE 18 IU/L (15-46); BILIRUBIN,INDIRECT 0.6 mg/dl (0-1.1); BILIRUBIN,TOTAL 0.6 mg/dl (0.2-1.3); BLOOD UREA NITROGEN 24 mg/dl (7-20); CALCIUM 8.7 mg/dl (8.4-10.2); CARBON DIOXIDE 24 mmol/L (21-31); CHLORIDE 111 mmol/L (97-110); Estimated GFR 27 mL/min (>60); GLUCOSE 122 mg/dl (70-220); SODIUM 148 mmol/L (135-144)
[2018-11-07 03:03] LABS: B-TYPE NATRIURETIC PEPTIDE 409 PG/ML (0-125); TROPONIN-I < 0.012 ng/ml (0.000-0.120)
[2018-11-07] MEDS ORDERED: morphine 4 MG/ML VIAL (03:07)
[2018-11-07] MEDS: morphine 4 MG/ML VIAL IV (03:18)
[2018-11-07 03:38] LABS: LACTIC ACID 1.9 mmol/L (0.5-2.0)
== END 2018-11-07 06:39 | disposition home or self-care (01) ==
LOC: E/R 11-07 06:39
DX: J44.1 Chronic obstructive pulmonary disease with (acute) exacerbation (principal); I25.2 Old myocardial infarction; I25.10 Atherosclerotic heart disease of native coronary artery without angina pectoris; I12.9 Hypertensive chronic kidney disease with stage 1 through stage 4 chronic kidney disease, or unspecified chronic kidney disease; N18.9 Chronic kidney disease, unspecified; Z86.73 Personal history of transient ischemic attack (TIA), and cerebral infarction without residual deficits
CPT/HCPCS: 36415; 71045; 80053; 83605; 83880; 84484; 85025; 87040-91; 93005; 94664; 96374; 96375; 99285-25

== ENCOUNTER 2018-12-07 19:53 | Emergency (ER) | payer MEDICARE, OTHER ==
[2018-12-07 20:40] LABS: ADD MAN DIFF? NO
[2018-12-07 20:41] LABS: ABNORMAL IP MESSAGE 1; BASOPHILS % 0.4 % (0.0-2.0); EOSINOPHILS # 0.1 10^3/ul (0.0-0.5); EOSINOPHILS % 2.6 % (0.0-7.0); HEMATOCRIT 35.1 % (42.0-52.0); LYMPHOCYTES # 0.8 10^3/ul (0.8-2.9); LYMPHOCYTES % 17.3 % (15.0-51.0); MEAN CORPUSCULAR HEMOGLOBIN 31.8 pg (29.0-33.0); MEAN CORPUSCULAR HGB CONC 34.2 g/dl (32.0-37.0); MEAN CORPUSCULAR VOLUME 93.1 fl (82.0-101.0); MEAN PLATELET VOLUME 9.7 fl (7.4-10.4); MONOCYTE # 0.3 10^3/ul (0.3-0.9); MONOCYTES % 6.9 % (0.0-11.0); NEUTROPHIL # 3.4 10^3/ul (1.6-7.5); NEUTROPHILS % 72.4 % (39.0-77.0); PLATELET COUNT 78 10^3/UL (140-415); POSITIVE DIFF @See below; RED BLOOD COUNT 3.77 10^6/ul (4.70-6.10); RED CELL DISTRIBUTION WIDTH 12.7 % (11.5-14.5)
[2018-12-07 20:41] LABS: WHITE BLOOD COUNT 4.6 10^3/ul (4.8-10.8)
[2018-12-07 20:48] LABS: AADO2 Arterial 109.1 mmHg (7.0-24.0); Arterial COHb 0.3 % (0.0-3.0); Arterial Fraction of Oxyhgb 94.7 % (93.0-99.0); Arterial HCO3 18.6 mmol/L (22.0-26.0); Arterial MetHb 0 % (0.0-1.5); Arterial pCO2 37.5 mmhg (35-45); MODE NASAL CANNULA; Site Right Brachial
[2018-12-07] MEDS: SOD CHLORIDE 0.9% 500 ML IV (20:53)
[2018-12-07] MEDS: METHYLPREDNISOLONE 125 MG INJ IV (20:53)
[2018-12-07] MEDS: KETOROLAC 15 MG INJ IV (20:54)
[2018-12-07] MEDS: IPRATROPIUM (NEB) 0.5 MG/2.5 ML AMP INH (20:56)
[2018-12-07] MEDS: ALBUTEROL 0.5% (NEB) 2.5 MG/0.5 ML AMP INH (20:56)
[2018-12-07 20:57] LABS: ALANINE AMINOTRANSFERASE 20 IU/L (13-69); ALBUMIN 3.7 g/dl (3.3-4.9); ALBUMIN/GLOBULIN RATIO 1.08; ALKALINE PHOSPHATASE 60 IU/L (42-121); ANION GAP 11 (5-13); ASPARTATE AMINO TRANSFERASE 18 IU/L (15-46); BLOOD UREA NITROGEN 34 mg/dl (7-20); CALCIUM 8.7 mg/dl (8.4-10.2); CARBON DIOXIDE 22 mmol/L (21-31); CHLORIDE 111 mmol/L (97-110); CREATININE 2.57 mg/dl (0.61-1.24); Estimated GFR 25 mL/min (>60); GLUCOSE 185 mg/dl (70-220); LIPASE 44 U/L (23-300); POTASSIUM 3.9 mmol/L (3.5-5.1); SODIUM 144 mmol/L (135-144); TOTAL PROTEIN 7.1 g/dl (6.1-8.1)
[2018-12-07 21:09] LABS: TROPONIN-I < 0.012 ng/ml (0.000-0.120)
[2018-12-07] MEDS: OXYCODONE/ACETAMINOPHEN (5/325) TAB PO (21:46)
[2018-12-07 22:02] LABS: B-TYPE NATRIURETIC PEPTIDE 368 PG/ML (0-125)
== END 2018-12-07 23:50 | disposition short-term general hospital (02) ==
LOC: E/R 23:50
DX: J41.0 Simple chronic bronchitis (principal); I12.9 Hypertensive chronic kidney disease with stage 1 through stage 4 chronic kidney disease, or unspecified chronic kidney disease; N18.9 Chronic kidney disease, unspecified; I25.2 Old myocardial infarction; M25.511 Pain in right shoulder; R53.1 Weakness; Z86.73 Personal history of transient ischemic attack (TIA), and cerebral infarction without residual deficits; Z95.0 Presence of cardiac pacemaker
CPT/HCPCS: 36415; 36600; 71045; 73030-RT; 80053; 82803; 83690; 83880; 84484; 85025; 93005; 94644; 96361; 96374; 96375; 99285-25